=== PATIENT | male | born 1950 | race Caucasian/White ===

== ENCOUNTER 2017-03-15 13:20 | Inpatient (IN) | payer MEDICARE ==
[~2017-03-15] VITALS: Ht 177.8 cm; Wt 120.7 kg
[~2017-03-15 13:20] MED LIST: ACET500T33 PO; ACET500T68 PO; ALBU2.5V5 IH; ASPI-612 PO; CLOP75TA57 PO; DOCU100C28 PO; ENOX60DI SQ; EZET10TA18 PO; FENO160T PO; FLUT16SP2 NS; Fentanyl TD; GABA-586 PO; HYDR-2762 PO; INSU100C4 SQ; ISOS120T PO; LACT10SO26 PO; LIPITOR80 MG PO; LISI-338 PO; METO25TA9 PO; METO5TAB PO; NITR4.1S TL; OXYM40TA PO; OXYM5TAB3 PO; PANT40TA3 PO; PRAV20TA2 PO; SUCR1TAB35 PO; TAMS0.4C97 PO; TIOT18CA IH; WARF4TAB7 PO; WARF5TAB7 PO; ZOLP10TA PO
--- NOTE | 2017-03-15 14:31 | RAD ---
Chest, 2 views, 03/15/2017: History: Shortness of breath Comparison is made to a study from 02/24/2016. The heart size and pulmonary vascularity are normal. No pulmonary infiltrates are seen. There is no evidence of pleural fluid. Moderate hypertrophic spurring is present in the spine. IMPRESSION: No acute cardiopulmonary abnormality is detected.
--- NOTE | 2017-03-15 14:44 | RAD ---
CT of the head without contrast, 03/15/2017: History: Dizziness Comparison is made to a study from 10/29/2013. The ventricles are within normal limits in size. There is no shift of the midline structures. There is no evidence of acute intracranial hemorrhage or mass effect. IMPRESSION: No acute intracranial abnormality is detected. PQRS Compliance Statement: One or more of the following individualized dose reduction techniques were utilized for this examination: 1. Automated exposure control 2. Adjustment of the mA and/or kV according to patient size 3. Use of iterative reconstruction technique
[2017-03-15] MEDS ORDERED: ALPR0.5T6 PO (14:50)
[2017-03-15] MEDS ORDERED: CRESTOR40 MG PO (14:53)
[2017-03-15 15:13] LABS: BASO % 0 % (0-3); EOS # 0.1 x10^3/uL (0.0-0.7); EOS % 1 % (0-3); HEMATOCRIT 40.5 % (39.0-53.0); HEMOGLOBIN 13.8 g/dL (13.0-17.5); LYMPH # 3.7 x10^3/uL (1.0-4.8); LYMPH % 32 % (24-48); MEAN CORPUSCULAR HEMOGLOBIN 32 pg (25-35); MEAN CORPUSCULAR HGB CONC 34 g/dL (31-37); MEAN CORPUSCULAR VOLUME 95 fL (79-100); MONO % 9 % (0-9); NEUT # 6.9 x10^3uL (1.8-7.7); NEUT % 59 % (31-73); PLATELET COUNT 170 x10^3/uL (140-400); RED BLOOD COUNT 4.27 x10^6/uL (4.30-5.70); RED CELL DISTRIBUTION WIDTH 13.9 % (11.5-14.5); WHITE BLOOD COUNT 11.7 x10^3/uL (4.0-11.0)
[2017-03-15 15:17] VITALS: BP 105/55
[2017-03-15 15:25] LABS: ALBUMIN 3.5 g/dL (3.4-5.0); ALBUMIN/GLOBULIN RATIO 0.9 (1.0-1.7); CALCIUM 8.5 mg/dL (8.5-10.1); CREATININE 5.2 mg/dL (0.7-1.3); GFR 11.2; POTASSIUM 4.6 mmol/L (3.5-5.1); TOTAL BILIRUBIN 0.5 mg/dL (0.2-1.0); TOTAL PROTEIN 7.4 g/dL (6.4-8.2)
[2017-03-15] MEDS ORDERED: DEXTROSE 50% 25 GM / 50ML DISP.SYRIN. IV PRN (15:45)
[2017-03-15] MEDS ORDERED: ALPRAZolam 0.5 MG TABLET PO PRN (16:30)
[2017-03-15] MEDS: INSULIN ASPART 300 UNITS/3 ML INSULN.PEN SQ SCH ×2 (16:30→20:57)
[2017-03-15] MEDS: IV NORMAL SALINE 1,000ML 1,000 ML IV SCH ×2 (17:57→22:36)
[2017-03-15] MEDS: GABAPENTIN 300 MG CAPSULE. PO SCH ×2 (17:57→20:53)
[2017-03-15] MEDS: SUCRALFATE 1 GM TABLET. PO SCH ×2 (17:57→20:53)
[2017-03-15] MEDS: WARFARIN 5 MG TABLET. PO SCH (18:05)
--- NOTE | 2017-03-15 18:17 | NUR ---
The patient, SIOBHAN OLIVEIRA, 66 y/o, M admitted by RUBY BROWN MD, was given written information regarding hospital policies, unit procedures and contact persons. Valuables were checked and left with pt. Pt's present on admission.
[2017-03-15 19:51] VITALS: BP 95/46
[2017-03-15] MEDS: ZOLPIDEM 10 MG TABLET. PO SCH (20:53)
[2017-03-15] MEDS: TAMSULOSIN 0.4 MG CAP.ER.24H. PO SCH (20:53)
[2017-03-15] MEDS: MORPHINE SULFATE 2 MG/ML DISP.SYRIN. IV PRN (22:55)
[2017-03-15 23:17] LABS: BACTERIA,URINE MOD /HPF (0-FEW); BILIRUBIN,URINE NEG (NEG); CLARITY,URINE HAZY; COLOR,URINE YELLOW; GLUCOSE,URINE 500 mg/dL (NEG); NITRITE,URINE NEG (NEG); RBC,URINE RARE /HPF (0-2); UROBILINOGEN,URINE 0.2 mg/dL (0.2 mg/dL)
[2017-03-15 23:18] LABS: HYALINE CASTS, URINE OCC /HPF; SQUAMOUS EPITHELIAL CELL,UR FEW /LPF
[2017-03-15 23:23] VITALS: BP 111/55
[2017-03-16] VITALS (8 sets, daily range): BP systolic 92–159; BP diastolic 42–70
[2017-03-16] MEDS: IV NORMAL SALINE 1,000ML 1,000 ML IV SCH ×3 (04:56→18:39)
[2017-03-16 06:43] LABS: CALCIUM 7.7 mg/dL (8.5-10.1); CREATININE 3.8 mg/dL (0.7-1.3); POTASSIUM 4.9 mmol/L (3.5-5.1)
[2017-03-16 06:48] LABS: BASO % 0 % (0-3); EOS # 0.1 x10^3/uL (0.0-0.7); EOS % 1 % (0-3); HEMATOCRIT 37.7 % (39.0-53.0); HEMOGLOBIN 12.5 g/dL (13.0-17.5); LYMPH # 3.3 x10^3/uL (1.0-4.8); LYMPH % 43 % (24-48); MEAN CORPUSCULAR HEMOGLOBIN 32 pg (25-35); MEAN CORPUSCULAR HGB CONC 33 g/dL (31-37); MEAN CORPUSCULAR VOLUME 97 fL (79-100); MONO # 0.6 x10^3/uL (0.0-1.1); MONO % 8 % (0-9); NEUT # 3.7 x10^3uL (1.8-7.7); NEUT % 48 % (31-73); PLATELET COUNT 131 x10^3/uL (140-400); RED BLOOD COUNT 3.88 x10^6/uL (4.30-5.70); RED CELL DISTRIBUTION WIDTH 14.1 % (11.5-14.5); WHITE BLOOD COUNT 7.7 x10^3/uL (4.0-11.0)
[2017-03-16] MEDS: INSULIN ASPART 300 UNITS/3 ML INSULN.PEN SQ SCH ×4 (08:10→21:26)
[2017-03-16] MEDS ORDERED: METOPROLOL SUCC 24HR ER 100 MG TAB.ER.24H. PO SCH (09:00)
[2017-03-16] MEDS: SUCRALFATE 1 GM TABLET. PO SCH ×4 (09:04→21:25)
[2017-03-16] MEDS: TAMSULOSIN 0.4 MG CAP.ER.24H. PO SCH ×2 (09:04→21:24)
[2017-03-16] MEDS: GABAPENTIN 300 MG CAPSULE. PO SCH ×4 (09:05→21:24)
[2017-03-16] MEDS: INSULIN DETEMIR 300 UNITS/3 ML INSULN.PEN. SQ SCH ×2 (09:15→21:26)
[2017-03-16] MEDS ORDERED: ZOLPIDEM 5 MG TABLET. PO PRN (10:45)
[2017-03-16] MEDS ORDERED: fentaNYL 25MCG/HR 1 PATCH PATCH TD SCH (11:00)
[2017-03-16 11:01] LABS: PHOSPHORUS 4.3 mg/dL (2.6-4.7)
--- NOTE | 2017-03-16 11:02 | PDOC ---
SUBJECTIVE: Feels better overall not as weak as he was still little bit slow but not anywhere near as he was when he came in through the office in the emergency room OBJECTIVE: Problems: Weakness acute renal failure Vital Signs: Vital signs stable Vital Signs Date Time Temp Pulse Resp B/P (MAP) Pulse Ox O2 Delivery O2 Flow Rate FiO2 03/16/17 09:09 98 16 116/64 (81) 03/16/17 04:57 97.5 03/15/17 23:41 96 03/15/17 23:23 Nasal Cannula 2.0 I & O Intake and Output 03/16/17 07:00 Intake Total 2460 ml Output Total 450 ml Balance 2010 ml Intake Oral 600 ml IV Total 1860 ml Output Urine Total 450 ml Labs: Lab tests show a decrease in his platelet counts 230,000 creatinine went from 5.2 down into the 3 range Laboratory Tests Test 03/15/17 14:55 03/15/17 16:57 03/15/17 19:48 03/15/17 21:00 White Blood Count 11.7 x10^3/uL (4.0-11.0) Red Blood Count 4.27 x10^6/uL (4.30-5.70) Hemoglobin 13.8 g/dL (13.0-17.5) Hematocrit 40.5 % (39.0-53.0) Mean Corpuscular Volume 95 fL (79-100) Mean Corpuscular Hemoglobin 32 pg (25-35) Mean Corpuscular Hemoglobin Concent 34 g/dL (31-37) Red Cell Distribution Width 13.9 % (11.5-14.5) Platelet Count 170 x10^3/uL (140-400) Neutrophils (%) (Auto) 59 % (31-73) Lymphocytes (%) (Auto) 32 % (24-48) Monocytes (%) (Auto) 9 % (0-9) Eosinophils (%) (Auto) 1 % (0-3) Basophils (%) (Auto) 0 % (0-3) Neutrophils # (Auto) 6.9 x10^3uL (1.8-7.7) Lymphocytes # (Auto) 3.7 x10^3/uL (1.0-4.8) Monocytes # (Auto) 1.0 x10^3/uL (0.0-1.1) Eosinophils # (Auto) 0.1 x10^3/uL (0.0-0.7) Basophils # (Auto) 0.0 x10^3/uL (0.0-0.2) Prothrombin Time 23.8 SEC (9.4-11.4) Prothromb Time International Ratio 2.3 (0.9-1.1) D-Dimer (Fidelina) 0.19 mg/L (0.00-0.50) Sodium Level 136 mmol/L (136-145) Potassium Level 4.6 mmol/L (3.5-5.1) Chloride Level 101 mmol/L (98-107) Carbon Dioxide Level 26 mmol/L (21-32) Anion Gap 9 (6-14) Blood Urea Nitrogen 64 mg/dL (8-26) Creatinine 5.2 mg/dL (0.7-1.3) Estimated GFR (Cockcroft-Gault) 11.2 BUN/Creatinine Ratio 12 (6-20) Glucose Level 217 mg/dL (70-99) Calcium Level 8.5 mg/dL (8.5-10.1) Total Bilirubin 0.5 mg/dL (0.2-1.0) Aspartate Amino Transf (AST/SGOT) 24 U/L (15-37) Alanine Aminotransferase (ALT/SGPT) 28 U/L (16-63) Alkaline Phosphatase 91 U/L (46-116) Creatine Kinase 442 U/L (39-308) Troponin I Quantitative < 0.017 ng/mL (0-0.055) < 0.017 ng/mL (0-0.055) TV-Fyf-S-Type Natriuretic Peptide 33 pg/mL (0-124) Total Protein 7.4 g/dL (6.4-8.2) Albumin 3.5 g/dL (3.4-5.0) Albumin/Globulin Ratio 0.9 (1.0-1.7) Glucose (Fingerstick) 241 mg/dL (70-99) 362 mg/dL (70-99) Test 03/15/17 22:45 03/16/17 01:30 03/16/17 05:45 03/16/17 07:39 Urine Collection Type Unknown Urine Color Yellow Urine Clarity Hazy Urine pH 5.0 Urine Specific [place] 1.025 Urine Protein Trace (NEG-TRACE) Urine Glucose (UA) 500 mg/dL (NEG) Urine Ketones (Stick) Neg mg/dL (NEG) Urine Blood Neg (NEG) Urine Nitrite Neg (NEG) Urine Bilirubin Neg (NEG) Urine Urobilinogen Dipstick 0.2 mg/dL (0.2 mg/dL) Urine Leukocyte Esterase Neg (NEG) Urine RBC Rare /HPF (0-2) Urine WBC 11-20 /HPF (0-4) Urine Squamous Epithelial Cells Few /LPF Urine Bacteria Mod /HPF (0-FEW) Urine Hyaline Casts Occ /HPF Urine Mucus Slight /LPF Troponin I Quantitative < 0.017 ng/mL (0-0.055) White Blood Count 7.7 x10^3/uL (4.0-11.0) Red Blood Count 3.88 x10^6/uL (4.30-5.70) Hemoglobin 12.5 g/dL (13.0-17.5) Hematocrit 37.7 % (39.0-53.0) Mean Corpuscular Volume 97 fL (79-100) Mean Corpuscular Hemoglobin 32 pg (25-35) Mean Corpuscular Hemoglobin Concent 33 g/dL (31-37) Red Cell Distribution Width 14.1 % (11.5-14.5) Platelet Count 131 x10^3/uL (140-400) Neutrophils (%) (Auto) 48 % (31-73) Lymphocytes (%) (Auto) 43 % (24-48) Monocytes (%) (Auto) 8 % (0-9) Eosinophils (%) (Auto) 1 % (0-3) Basophils (%) (Auto) 0 % (0-3) Neutrophils # (Auto) 3.7 x10^3uL (1.8-7.7) Lymphocytes # (Auto) 3.3 x10^3/uL (1.0-4.8) Monocytes # (Auto) 0.6 x10^3/uL (0.0-1.1) Eosinophils # (Auto) 0.1 x10^3/uL (0.0-0.7) Basophils # (Auto) 0.0 x10^3/uL (0.0-0.2) Sodium Level 134 mmol/L (136-145) Potassium Level 4.9 mmol/L (3.5-5.1) Chloride Level 102 mmol/L (98-107) Carbon Dioxide Level 25 mmol/L (21-32) Anion Gap 7 (6-14) Blood Urea Nitrogen 65 mg/dL (8-26) Creatinine 3.8 mg/dL (0.7-1.3) Estimated GFR (Cockcroft-Gault) 16.0 Glucose Level 299 mg/dL (70-99) Calcium Level 7.7 mg/dL (8.5-10.1) Glucose (Fingerstick) 304 mg/dL (70-99) Physical Exam: White male morbidly obese alert and oriented 3 since feeling better otherwise This Alert and oriented Lungs diminished but clear is CV exam regular sinus rhythm Abdomen protuberant soft nontender [place] a clubbing cyanosis trace edema Neurologically alert and oriented speech fluent spontaneous appropriate cranial nerves II-12 grossly intact ASSESSMENT: Acute renal failure Dehydration morbid obesity Type 2 diabetes poorly controlled PLAN: Continue with IV fluids gentle hydration continue monitor him on his blood sugars and RUBY Jacobson MD Mar 16, 2017 11:02
--- NOTE | 2017-03-16 11:30 | NUR ---
Sliding scale insulin held, blood sugar 406, called Dr. Parsons and received order for 30 units insulin.
[2017-03-16] MEDS ORDERED: INSULIN ASPART 300 UNITS/3 ML INSULN.PEN SQ ONE ×2 (12:30→18:00)
[2017-03-16] MEDS: ISOSORBIDE MONONITRATE ER 60 MG TAB.ER.24H PO SCH (15:06)
[2017-03-16] MEDS: WARFARIN 5 MG TABLET. PO SCH (16:13)
[2017-03-16] MEDS: METOPROLOL SUCC 24HR ER 100 MG TAB.ER.24H. PO SCH ×2 (21:25→21:50)
[2017-03-16] MEDS: ZOLPIDEM 10 MG TABLET. PO SCH (21:25)
[2017-03-17] MEDS: IV NORMAL SALINE 1,000ML 1,000 ML IV SCH ×4 (01:50→20:42)
[2017-03-17] MEDS: BACLOFEN 10 MG TABLET PO PRN ×3 (05:35→20:43)
[2017-03-17 05:51] VITALS: BP 124/52
[2017-03-17 06:42] LABS: BASO % 0 % (0-3); EOS # 0.1 x10^3/uL (0.0-0.7); EOS % 2 % (0-3); HEMATOCRIT 35.4 % (39.0-53.0); HEMOGLOBIN 11.9 g/dL (13.0-17.5); LYMPH # 3.1 x10^3/uL (1.0-4.8); LYMPH % 41 % (24-48); MEAN CORPUSCULAR HEMOGLOBIN 33 pg (25-35); MEAN CORPUSCULAR HGB CONC 34 g/dL (31-37); MEAN CORPUSCULAR VOLUME 97 fL (79-100); MONO # 0.6 x10^3/uL (0.0-1.1); MONO % 8 % (0-9); NEUT # 3.7 x10^3uL (1.8-7.7); NEUT % 49 % (31-73); PLATELET COUNT 126 x10^3/uL (140-400); RED BLOOD COUNT 3.65 x10^6/uL (4.30-5.70); RED CELL DISTRIBUTION WIDTH 14.2 % (11.5-14.5); WHITE BLOOD COUNT 7.6 x10^3/uL (4.0-11.0)
[2017-03-17 06:58] LABS: ALBUMIN 2.7 g/dL (3.4-5.0); ALBUMIN/GLOBULIN RATIO 0.8 (1.0-1.7); CALCIUM 7.2 mg/dL (8.5-10.1); CREATININE 2.8 mg/dL (0.7-1.3); GFR 22.8; POTASSIUM 4.9 mmol/L (3.5-5.1); TOTAL PROTEIN 6.2 g/dL (6.4-8.2)
[2017-03-17 07:11] LABS: TOTAL BILIRUBIN 0.4 mg/dL (0.2-1.0)
[2017-03-17] MEDS: INSULIN ASPART 300 UNITS/3 ML INSULN.PEN SQ SCH ×6 (08:34→20:45)
[2017-03-17] MEDS: TAMSULOSIN 0.4 MG CAP.ER.24H. PO SCH ×2 (08:39→20:42)
[2017-03-17] MEDS: SUCRALFATE 1 GM TABLET. PO SCH ×4 (08:39→20:43)
[2017-03-17] MEDS: GABAPENTIN 300 MG CAPSULE. PO SCH ×4 (08:39→20:42)
[2017-03-17] MEDS: INSULIN DETEMIR 300 UNITS/3 ML INSULN.PEN. SQ SCH ×2 (08:45→20:45)
[2017-03-17] MEDS: ISOSORBIDE MONONITRATE ER 60 MG TAB.ER.24H PO SCH (11:13)
--- NOTE | 2017-03-17 11:40 | PDOC ---
SUBJECTIVE: Patient feels some better but still weak OBJECTIVE: Problems: Acute on top of chronic renal failure Type 2 diabetes poorly controlled Morbid obesity Alert and oriented white male in no apparent distress still feeling some weakness lungs are clear CVR exam regular sinus rhythm Abdomen soft nontender. [place] and extremities slight edema noted neurologically alert and oriented 3 Vital Signs: Noted Vital Signs Date Time Temp Pulse Resp B/P (MAP) Pulse Ox O2 Delivery O2 Flow Rate FiO2 03/17/17 11:13 98.2 03/17/17 11:13 73 130/52 03/17/17 05:51 17 96 Nasal Cannula 2.0 I & O Intake and Output 03/17/17 07:00 Intake Total 5024 ml Output Total 1600 ml Balance 3424 ml Intake Oral 1560 ml IV Total 3464 ml Output Urine Total 1600 ml # Voids 1 # Bowel Movements 1 Labs: Creatinine down to 2.8 so marked improvement there blood sugars are coming down gradually with the increase in his long-acting Levemir Laboratory Tests Test 03/15/17 14:35 03/15/17 14:55 03/15/17 16:57 03/15/17 19:48 Nasal Screen MRSA (PCR) Negative (Negative) White Blood Count 11.7 x10^3/uL (4.0-11.0) Red Blood Count 4.27 x10^6/uL (4.30-5.70) Hemoglobin 13.8 g/dL (13.0-17.5) Hematocrit 40.5 % (39.0-53.0) Mean Corpuscular Volume 95 fL (79-100) Mean Corpuscular Hemoglobin 32 pg (25-35) Mean Corpuscular Hemoglobin Concent 34 g/dL (31-37) Red Cell Distribution Width 13.9 % (11.5-14.5) Platelet Count 170 x10^3/uL (140-400) Neutrophils (%) (Auto) 59 % (31-73) Lymphocytes (%) (Auto) 32 % (24-48) Monocytes (%) (Auto) 9 % (0-9) Eosinophils (%) (Auto) 1 % (0-3) Basophils (%) (Auto) 0 % (0-3) Neutrophils # (Auto) 6.9 x10^3uL (1.8-7.7) Lymphocytes # (Auto) 3.7 x10^3/uL (1.0-4.8) Monocytes # (Auto) 1.0 x10^3/uL (0.0-1.1) Eosinophils # (Auto) 0.1 x10^3/uL (0.0-0.7) Basophils # (Auto) 0.0 x10^3/uL (0.0-0.2) Prothrombin Time 23.8 SEC (9.4-11.4) Prothromb Time International Ratio 2.3 (0.9-1.1) D-Dimer (Fidelina) 0.19 mg/L (0.00-0.50) Sodium Level 136 mmol/L (136-145) Potassium Level 4.6 mmol/L (3.5-5.1) Chloride Level 101 mmol/L (98-107) Carbon Dioxide Level 26 mmol/L (21-32) Anion Gap 9 (6-14) Blood Urea Nitrogen 64 mg/dL (8-26) Creatinine 5.2 mg/dL (0.7-1.3) Estimated GFR (Cockcroft-Gault) 11.2 BUN/Creatinine Ratio 12 (6-20) Glucose Level 217 mg/dL (70-99) Hemoglobin A1c 8.0 % (4.8-5.6) Calcium Level 8.5 mg/dL (8.5-10.1) Total Bilirubin 0.5 mg/dL (0.2-1.0) Aspartate Amino Transf (AST/SGOT) 24 U/L (15-37) Alanine Aminotransferase (ALT/SGPT) 28 U/L (16-63) Alkaline Phosphatase 91 U/L (46-116) Creatine Kinase 442 U/L (39-308) Troponin I Quantitative < 0.017 ng/mL (0-0.055) WD-Asg-H-Type Natriuretic Peptide 33 pg/mL (0-124) Total Protein 7.4 g/dL (6.4-8.2) Albumin 3.5 g/dL (3.4-5.0) Albumin/Globulin Ratio 0.9 (1.0-1.7) Glucose (Fingerstick) 241 mg/dL (70-99) 362 mg/dL (70-99) Test 03/15/17 21:00 03/15/17 22:45 03/16/17 01:30 03/16/17 05:45 Troponin I Quantitative < 0.017 ng/mL (0-0.055) < 0.017 ng/mL (0-0.055) Urine Collection Type Unknown Urine Color Yellow Urine Clarity Hazy Urine pH 5.0 Urine Specific [place] 1.025 Urine Protein Trace (NEG-TRACE) Urine Glucose (UA) 500 mg/dL (NEG) Urine Ketones (Stick) Neg mg/dL (NEG) Urine Blood Neg (NEG) Urine Nitrite Neg (NEG) Urine Bilirubin Neg (NEG) Urine Urobilinogen Dipstick 0.2 mg/dL (0.2 mg/dL) Urine Leukocyte Esterase Neg (NEG) Urine RBC Rare /HPF (0-2) Urine WBC 11-20 /HPF (0-4) Urine Squamous Epithelial Cells Few /LPF Urine Bacteria Mod /HPF (0-FEW) Urine Hyaline Casts Occ /HPF Urine Mucus Slight /LPF White Blood Count 7.7 x10^3/uL (4.0-11.0) Red Blood Count 3.88 x10^6/uL (4.30-5.70) Hemoglobin 12.5 g/dL (13.0-17.5) Hematocrit 37.7 % (39.0-53.0) Mean Corpuscular Volume 97 fL (79-100) Mean Corpuscular Hemoglobin 32 pg (25-35) Mean Corpuscular Hemoglobin Concent 33 g/dL (31-37) Red Cell Distribution Width 14.1 % (11.5-14.5) Platelet Count 131 x10^3/uL (140-400) Neutrophils (%) (Auto) 48 % (31-73) Lymphocytes (%) (Auto) 43 % (24-48) Monocytes (%) (Auto) 8 % (0-9) Eosinophils (%) (Auto) 1 % (0-3) Basophils (%) (Auto) 0 % (0-3) Neutrophils # (Auto) 3.7 x10^3uL (1.8-7.7) Lymphocytes # (Auto) 3.3 x10^3/uL (1.0-4.8) Monocytes # (Auto) 0.6 x10^3/uL (0.0-1.1) Eosinophils # (Auto) 0.1 x10^3/uL (0.0-0.7) Basophils # (Auto) 0.0 x10^3/uL (0.0-0.2) Sodium Level 134 mmol/L (136-145) Potassium Level 4.9 mmol/L (3.5-5.1) Chloride Level 102 mmol/L (98-107) Carbon Dioxide Level 25 mmol/L (21-32) Anion Gap 7 (6-14) Blood Urea Nitrogen 65 mg/dL (8-26) Creatinine 3.8 mg/dL (0.7-1.3) Estimated GFR (Cockcroft-Gault) 16.0 Glucose Level 299 mg/dL (70-99) Calcium Level 7.7 mg/dL (8.5-10.1) Phosphorus Level 4.3 mg/dL (2.6-4.7) Albumin 3.0 g/dL (3.4-5.0) Test 03/16/17 07:39 03/16/17 10:40 03/16/17 11:22 03/16/17 16:38 Glucose (Fingerstick) 304 mg/dL (70-99) 406 mg/dL (70-99) 313 mg/dL (70-99) Prothrombin Time 28.2 SEC (9.4-11.4) Prothromb Time International Ratio 2.7 (0.9-1.1) Test 03/16/17 20:48 03/17/17 06:10 03/17/17 07:26 03/17/17 11:30 Glucose (Fingerstick) 267 mg/dL (70-99) 219 mg/dL (70-99) 309 mg/dL (70-99) White Blood Count 7.6 x10^3/uL (4.0-11.0) Red Blood Count 3.65 x10^6/uL (4.30-5.70) Hemoglobin 11.9 g/dL (13.0-17.5) Hematocrit 35.4 % (39.0-53.0) Mean Corpuscular Volume 97 fL (79-100) Mean Corpuscular Hemoglobin 33 pg (25-35) Mean Corpuscular Hemoglobin Concent 34 g/dL (31-37) Red Cell Distribution Width 14.2 % (11.5-14.5) Platelet Count 126 x10^3/uL (140-400) Neutrophils (%) (Auto) 49 % (31-73) Lymphocytes (%) (Auto) 41 % (24-48) Monocytes (%) (Auto) 8 % (0-9) Eosinophils (%) (Auto) 2 % (0-3) Basophils (%) (Auto) 0 % (0-3) Neutrophils # (Auto) 3.7 x10^3uL (1.8-7.7) Lymphocytes # (Auto) 3.1 x10^3/uL (1.0-4.8) Monocytes # (Auto) 0.6 x10^3/uL (0.0-1.1) Eosinophils # (Auto) 0.1 x10^3/uL (0.0-0.7) Basophils # (Auto) 0.0 x10^3/uL (0.0-0.2) Prothrombin Time 30.3 SEC (9.4-11.4) Prothromb Time International Ratio 2.9 (0.9-1.1) Sodium Level 136 mmol/L (136-145) Potassium Level 4.9 mmol/L (3.5-5.1) Chloride Level 106 mmol/L (98-107) Carbon Dioxide Level 26 mmol/L (21-32) Anion Gap 4 (6-14) Blood Urea Nitrogen 62 mg/dL (8-26) Creatinine 2.8 mg/dL (0.7-1.3) Estimated GFR (Cockcroft-Gault) 22.8 BUN/Creatinine Ratio 22 (6-20) Glucose Level 226 mg/dL (70-99) Calcium Level 7.2 mg/dL (8.5-10.1) Total Bilirubin 0.4 mg/dL (0.2-1.0) Aspartate Amino Transf (AST/SGOT) 17 U/L (15-37) Alanine Aminotransferase (ALT/SGPT) 21 U/L (16-63) Alkaline Phosphatase 67 U/L (46-116) Total Protein 6.2 g/dL (6.4-8.2) Albumin 2.7 g/dL (3.4-5.0) Albumin/Globulin Ratio 0.8 (1.0-1.7) ASSESSMENT: As noted above acute on top of chronic renal failure Type 2 diabetes poorly controlled Dehydration Morbid obesity RUBY BROWN MD Mar 17, 2017 11:40
[2017-03-17] MEDS: WARFARIN 5 MG TABLET. PO SCH (15:56)
[2017-03-17 20:28] VITALS: BP 170/85
--- NOTE | 2017-03-17 20:31 | NUR ---
Patient assessed, care plan reviewed, continue to monitor.
[2017-03-17] MEDS: ZOLPIDEM 10 MG TABLET. PO SCH (20:42)
[2017-03-17] MEDS: METOPROLOL SUCC 24HR ER 100 MG TAB.ER.24H. PO SCH (20:43)
[2017-03-17 23:55] VITALS: BP 236/117
[2017-03-17 23:58] VITALS: BP 220/103
[2017-03-18] VITALS (10 sets, daily range): BP systolic 110–221; BP diastolic 57–106
--- NOTE | 2017-03-18 00:06 | NUR ---
Called Dr. Parsons to make him aware that the patient woke up very confused and stumbling around his room. The patient was assessed, neuro checks were completed, blood sugar and vitals were taken. The patient had taken Ambien earlier to help him sleep, which I made the doctor aware of. I also made the doctor aware that the patient's blood pressures were very high at this time (see vs documentation). I was given additional medication orders to treat this hypertension (see mar).
[2017-03-18] MEDS: NITROGLYCERIN SUBLINGUAL 0.4 MG BOTTLE OF 25. SL PRN ×2 (00:08→00:15)
[2017-03-18] MEDS ORDERED: hydrALAZINE 25 MG TABLET PO PRN (00:30)
[2017-03-18] MEDS: IV NORMAL SALINE 1,000ML 1,000 ML IV SCH ×2 (00:43→11:25)
--- NOTE | 2017-03-18 01:00 | NUR ---
0052 This nurse entered orders for EKG and cardiac enzymes per chest pain protocol. Will continue to monitor.
--- NOTE | 2017-03-18 01:00 | NUR ---
The patient became very anxious and complaining of of chest pain at 0005. At 0008 nitro was administered with minimal relief. Another nitro was given at 0015 relieving the chest pain.
--- NOTE | 2017-03-18 01:05 | NUR ---
The patient's cardiac enzymes are within normal limits. Patient is resting well with blood pressures improving.
[2017-03-18] MEDS: MORPHINE SULFATE 2 MG/ML DISP.SYRIN. IV PRN (01:09)
--- NOTE | 2017-03-18 01:14 | EKG ---
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
--- NOTE | 2017-03-18 01:20 | NUR ---
Patient is resting comfortably with family at the bedside. Blood pressures are improving. Will continue to monitor.
[2017-03-18 03:30] LABS: ALBUMIN/GLOBULIN RATIO 0.8 (1.0-1.7); CALCIUM 7.8 mg/dL (8.5-10.1); CREATININE 2.3 mg/dL (0.7-1.3); TOTAL PROTEIN 6.7 g/dL (6.4-8.2)
[2017-03-18 03:31] LABS: GFR 28.6; TOTAL BILIRUBIN 0.3 mg/dL (0.2-1.0)
[2017-03-18 03:54] LABS: PHOSPHORUS 3.3 mg/dL (2.6-4.7)
[2017-03-18] MEDS: GABAPENTIN 300 MG CAPSULE. PO SCH ×2 (08:29→12:13)
[2017-03-18] MEDS: TAMSULOSIN 0.4 MG CAP.ER.24H. PO SCH (08:29)
[2017-03-18] MEDS: ISOSORBIDE MONONITRATE ER 60 MG TAB.ER.24H PO SCH (08:29)
[2017-03-18] MEDS: SUCRALFATE 1 GM TABLET. PO SCH ×2 (08:29→12:13)
[2017-03-18] MEDS: INSULIN ASPART 300 UNITS/3 ML INSULN.PEN SQ SCH ×4 (08:30→12:14)
[2017-03-18] MEDS: INSULIN DETEMIR 300 UNITS/3 ML INSULN.PEN. SQ SCH (08:30)
[2017-03-18] MEDS ORDERED: ZOLP5TAB PO (11:56)
[2017-03-18] MEDS ORDERED: BACL10TA PO (11:56)
[2017-03-18] MEDS ORDERED: FENT1PAT15 TD (11:56)
[2017-03-18] MEDS ORDERED: INSU100I17 SQ (11:56)
[2017-03-18] MEDS ORDERED: HYDR-2868 PO (11:56)
[2017-03-18] MEDS ORDERED: INSU100I27 SQ (11:56)
== END 2017-03-18 14:51 | disposition swing bed (61) | DRG 683 ==
LOC: ICU 13:22
PROVIDERS: ADMIT Family Medicine; ATTEND Family Medicine
DX: N17.9 Acute kidney failure, unspecified (principal); D62 Acute posthemorrhagic anemia; E66.01 Morbid (severe) obesity due to excess calories; E11.22 Type 2 diabetes mellitus with diabetic chronic kidney disease; N18.9 Chronic kidney disease, unspecified; E86.0 Dehydration; Z68.38 Body mass index [BMI] 38.0-38.9, adult
CPT/HCPCS: 36415; 70450; 71020; 80048; 80053; 81001; 82040; 82550; 82553; 82947; 83036; 83880; 84100; 84484; 85027; 85379; 85610; 87086; 87641; 93005; 97163; J1815; J2270; 97110; 97116; J7030

== ENCOUNTER 2017-03-18 09:30 | Inpatient (IN) | payer MEDICARE ==
[~2017-03-18] VITALS: Ht 177.8 cm; Wt 123.6 kg
[~2017-03-18 09:30] MED LIST changes: +ALPR0.5T6 PO; +CRESTOR40 MG PO
[2017-03-18] MEDS ORDERED: ZOLP5TAB PO (11:56)
[2017-03-18] MEDS ORDERED: HYDR-2868 PO (11:56)
[2017-03-18] MEDS ORDERED: INSU100I27 SQ (11:56)
[2017-03-18] MEDS ORDERED: BACL10TA PO (11:56)
[2017-03-18] MEDS ORDERED: FENT1PAT15 TD (11:56)
[2017-03-18] MEDS ORDERED: INSU100I17 SQ (11:56)
[2017-03-18] MEDS ORDERED: ZOLPIDEM 5 MG TABLET. PO PRN (15:15)
[2017-03-18] MEDS ORDERED: BACLOFEN 10 MG TABLET PO PRN (15:15)
[2017-03-18] MEDS ORDERED: ALPRAZolam 0.5 MG TABLET PO PRN (15:15)
[2017-03-18] MEDS ORDERED: hydrALAZINE 25 MG TABLET PO PRN (15:15)
[2017-03-18] MEDS ORDERED: DEXTROSE 50% 25 GM / 50ML DISP.SYRIN. IV PRN (15:15)
[2017-03-18] MEDS ORDERED: NITROGLYCERIN SUBLINGUAL 0.4 MG BOTTLE OF 25. SL PRN (15:45)
[2017-03-18] MEDS: INSULIN ASPART 300 UNITS/3 ML INSULN.PEN SQ SCH ×3 (17:17→20:02)
[2017-03-18] MEDS: GABAPENTIN 300 MG CAPSULE. PO SCH ×2 (17:22→19:53)
[2017-03-18] MEDS: WARFARIN 5 MG TABLET. PO SCH (17:22)
[2017-03-18] MEDS: SUCRALFATE 1 GM TABLET. PO SCH ×2 (17:22→19:53)
[2017-03-18] MEDS: METOPROLOL SUCC 24HR ER 100 MG TAB.ER.24H. PO SCH (19:54)
[2017-03-18] MEDS: TAMSULOSIN 0.4 MG CAP.ER.24H. PO SCH (19:54)
[2017-03-18] MEDS: INSULIN DETEMIR 300 UNITS/3 ML INSULN.PEN. SQ SCH (20:03)
[2017-03-18 20:06] VITALS: BP 136/53
[2017-03-19 00:13] VITALS: BP 149/72
[2017-03-19 02:10] VITALS: BP 154/72
[2017-03-19 06:44] LABS: CALCIUM 8.3 mg/dL (8.5-10.1); CREATININE 1.8 mg/dL (0.7-1.3); GFR 37.9; POTASSIUM 5.2 mmol/L (3.5-5.1)
[2017-03-19 07:40] VITALS: BP 151/62
[2017-03-19] MEDS: SUCRALFATE 1 GM TABLET. PO SCH ×4 (08:05→21:22)
[2017-03-19] MEDS: GABAPENTIN 300 MG CAPSULE. PO SCH ×4 (08:05→21:23)
[2017-03-19] MEDS: TAMSULOSIN 0.4 MG CAP.ER.24H. PO SCH ×2 (08:06→21:23)
[2017-03-19] MEDS: ISOSORBIDE MONONITRATE ER 30 MG TAB.ER.24H PO SCH (08:06)
[2017-03-19] MEDS: INSULIN DETEMIR 300 UNITS/3 ML INSULN.PEN. SQ SCH ×2 (08:11→21:27)
[2017-03-19] MEDS: INSULIN ASPART 300 UNITS/3 ML INSULN.PEN SQ SCH ×7 (08:12→21:32)
[2017-03-19] MEDS ORDERED: fentaNYL 25MCG/HR 1 PATCH PATCH TD SCH (09:00)
--- NOTE | 2017-03-19 09:25 | PDOC2 ---
DAVE CEE TRANSPORTATION COORDINATOR 03/19/17 0925: CONSULT Date of Admission DATE: 03/19/17 TIME: 09:13 Reason for Consult: Chest pain Referring Physician: Dr Parsons History of Present Illness This is a 66 year old male who presented to his PCP office last Saturday with extreme weakness. He has a history of of coronary artery disease, NC, hypertension, hyperlipidemia, history of pulmonary embolism in 2010 on chronic anti-coagulation and chronic pain syndrome. Berto came in to [facility] with weakness and was found to have acute renal failure. His creatinine at baseline is usually about 1.5 and he follows with Dr. Moeller on admission to the hospital it was greater than 5. He was given IV fluids and his medications were adjusted and his creatinine improved. Today it is 1.8 and he is feeling much better. On Saturday night he awoke in the middle the night about 2 hours after he had fallen asleep with substernal chest pain and diaphoresis. The pain was radiating down into his left arm and was associated with some shortness of breath but not any nausea or vomiting. his blood pressure systolic was greater than 200 and he was given 2 sublingual nitroglycerin and anxiety medicine that finally had his pain under control. Last night he had a 2nd episode of chest discomfort that was similar to the 1st night but his blood pressure was not high and it did not extend down his arm. He woke about 2 hours after sleep had substernal chest discomfort and was given 1 nitroglycerin and had relief of the pain after 10-15 minutes. This morning he is up in the chair he has not had further episodes of chest discomfort and his breathing is stable. Allergies: NIACIN Medications ALPRAZolam 0.5 mg tabletas needed gabapentin 300 mg capsuleTake 1 capsule(s) 4 times a day by oral route for 90 days. HumaLOG 100 unit/mL subcutaneous solutionas directed isosorbide mononitrate ER 120 mg tablet,extended release 24 hr1 tablet daily, start 02/04/2017 lisinopril 20 mg tabletTake 1 tablet(s) every day by oral route.02/04/17 prescribed JUAN J Rodríguez metoprolol succinate ER 100 mg tablet,extended release 24 hrTake 1 tablet(s) every day by oral route. nitroglycerin 400 mcg/spray translingualSpray 1 spray(s) every day by transling. route as needed for 10 days. sucralfate 1 gram tabletTake 1 tablet(s) 4 times a day by oral route for 30 days. tamsulosin 0.4 mg capsuleTake 1 capsule(s) twice a day by oral route for 90 days. warfarin 5 mg tablet zolpidem 10 mg tabletTake 1 tablet(s) every day by oral route for 30 days. Family History Father - Diabetes mellitus - Hypertensive disorder - Heart disease Mother - Diabetes mellitus - Hypertensive disorder - Heart disease Sister - Diabetes mellitus Brother - Diabetes mellitus - Hypertensive disorder - Cardiac pacemaker in situ Social History Occupation: retired Marital status: Live alone or with others?: with others Diet: Regular Exercise level: None Smoking Status: Never smoker Alcohol intake: Occasional Caffeine intake: Occasional Past Medical/Surgical History Coronary Artery Disease s/p PCI/Stent, HTN, HLD, NC Acid Reflux (GERD): Y Chronic Kidney Disease: Y Diabetes: Y Sleep Apnea: Y Cholecystectomy Pulmonary emboism in 2010 on chronic anti - coagulation Chronic pain syndrome. ROS - 10 point review of systems is negative except as above. Physical Exam GENERAL: This is a well developed, well nourished male. No apparent distress. SKIN: Warm and dry with normal skin turgor. Negative for pallor. No lesions or rashes noted. EYES: Conjunctiva are clear. Extraocular movements are intact. No xanthelasma. HEAD AND NECK: Oral mucosa is moist. There is no cyanosis. Neck is supple. Jugular venous pressure is flat. Carotid pulses are 2/2 bilaterally. No carotid bruits. There is no obvious thyromegaly. HEART: Regular rate and rhythm. Normal S1 and S2. No S3. No S4. + systolic murmur LUNGS: Effort is good. There is symmetric expansion bilaterally. Clear to auscultation bilaterally. No wheezes. No crackles. No rhonchi. ABDOMEN: Normal active bowel sounds. Soft. Nontender. EXTREMITIES: No clubbing. No cyanosis. No edema of lower extremities. Palpable pedal pulses. MUSCULOSKELETAL: No kyphosis. No scoliosis. No localized tenderness or stiffness. Gait appears normal. NEUROLOGIC: Alert and oriented times three. Cranial nerves III-XII are grossly intact. Good motor tone and strength in the upper and lower extremities bilaterally. PSYCHOLOGIC: This is a pleasant patient with a normal affect. Procedure Documentation 6 MINUTE WALK TEST IMPRESSION (01/04/2017):. Six minute walk test did not reveal desaturation or chronotropic insufficiency. Functional Capacity was low. ECHOCARDIOGRAM IMPRESSION (12/18/2016): The left ventricle is normal in size. There is mild concentric left ventricular hypertrophy. No significant regional wall motion abnormalities are identified. The left ventricular systolic function is normal with a visually estimated ejection fraction of 55-60%. There is evidence of impaired left ventricular relaxation suggestive of stage I diastolic dysfunction. The proximal ascending aorta appears mildly dilated at 3.8 cm. There is mild aortic valve sclerosis. There is mild pulmonic regurgitation. The estimated pulmonary artery systolic pressure is normal at 32 mmHg. Compared to the report (images were not available for review) of the study dated 09/19/2015, the left ventricular hypertrophy is a new finding. LEXISCAN NUCLEAR STRESS TEST IMPRESSION (07/06/2016): Normal myocardial perfusion scan Normal left ventricular systolic function Ejection fraction: 68%. There is no stress induced left ventricular dilatation or increase in lung to heart ratio. There were no stress induced ECG changes. There were no arrythmias. There was no stress induced chest pain. Compared to the report (images were not available for review) from the previous study performed on 01/25/2015, there was no significant change. HOLTER MONITOR IMPRESSION (09/19/2015):. 1. Normal Holter recording with occasional premature atrial complexes (110) and 1 single premature ventricular complex. 2. Although the patient had bradycardia during 3 of his symptoms of fatigue and tired, he was able to adequately increase his heart rate on multiple occasions up to 123 beats per minute. This makes chronotropic incompetence unlikely unless it is iatrogenic. The patient did report shortness of breath at 4 a.m; however, it appears to have been during the time when he was in bed. The other episode of feeling very tired at 9 a.m. when his heart rate was 48 appears to correspond with the time when he had just woken up. This would point to be the bradycardia being secondary to his fatigue rather than the etiology. BILATERAL RENAL ULTRASOUND 05/04/15: 1. No renal abnormality is detected. 2. CT follow-up to include multiphase scanning is suggested for evaluation of the small cortical bulge seen on the recent CT scan. CT abdomen and pelvis with oral contrast only 05/02/15: 1. No acute process in the abdomen or pelvis. The appendix is negative. 2. Postoperative changes of the lumbar spine as described above. 3. 1 centimeter exophytic isodensity right renal midpole new from the prior study of uncertain significance, could represent a new hemorrhagic cyst or a solid mass. Right lower extremity venous ultrasound, 03/21/2015 : There is no sonographic evidence of deep vein thrombosis in the right lower extremity CT angiogram of the chest with intravenous contrast 03/21/15: - Limited examination. No proximal segmental or larger pulmonary embolism identified. - No acute abnormality identified in the chest. CAROTID DOPPLER IMPRESSION (10/30/2013): Duplex scans of the right carotid system revealed: 1. Mild disease in carotid bulb, ICA. 2. There were no significant flow limiting lesions in carotid bulb, ICA, ECA, CCA. 3. The right vertebral artery shows normal antegrade flow. Duplex scans of the left carotid system revealed: 1. Mild disease in carotid bulb, ICA. 2. There were no significant flow limiting lesions in carotid bulb, ICA, ECA, CCA. 3. The left vertebral artery shows normal antegrade flow. CARDIAC CATHETERIZATION CLINICAL IMPRESSION (05/16/11): 1. Mildly elevated left ventricular end-diastolic pressure. 2. Moderate two-vessel coronary artery disease involving the proximal segments of the left anterior descending and dominant left circumflex coronary arteries as outlined above. 3. The patient is known to have normal left ventricular systolic function by nuclear stress test wich was performed on 02/15/2011 at [facility]. Specifically, his ejection fraction was 62% on that test. Assessment / Plan Chest pain - Continue imdur and replace lisinopril with ccb to control blood pressure, check ekg and troponin Coronary artery disease s/p PTCA/Stent to LAD with 90% Diagonal small vessel disease. Troponin elevation 12/2013 from probable NSTEMI with no culprit lesion found. Essential Hypertension, borderline controlled. Adjust the patients anti- hypertensive medications. Hyperlipidemia. His goal LDL is < 70 mg/dL. Resume Crestor Acute on chronic renal failure - Improving. On admit Creatine was over 5.0. Given fluids, Lisinopril stopped and DM meds adjusted. Now back down to 1.8 with baseline about 1.4. Obesity, Morbid. Lifestyle modification with exercise, diet and weight loss recommended. Chronic chest pain/Fibromyalgia. Obstructive sleep apnea intolerant to Cpap - Wears O2 at bedtime. Considering going to [facility] and finding out more about new sleep apnea devices. Diabetes mellitus. Continue treatment per primary provider. S/p PE on Coumadin last three years GERD/Gastroparesis - Improving with Nortriptyline Current Medications Current Medications Insulin Aspart (NovoLOG) 0-9 UNITS QIDACHS SQ Last administered on 03/19/17 08 :12; Start 03/18/17 at 16:30 Dextrose 12.5 gm PRN Q15MIN PRN IV SEE COMMENTS; Start 03/18/17 at 15:15 Alprazolam (Xanax) 0.5 mg PRN DAILY PRN PO ANXIETY / AGITATION; Start 03/18/17 at 15:15 Baclofen (Lioresal) 10 mg PRN TID PRN PO spasms cramps; Start 03/18/17 at 15:15 Fentanyl (Duragesic 25mcg/ Hr) 1 patch Q3DAYS TD Last administered on 08:07; Start 03/19/17 at 09:00 Gabapentin (Neurontin) 300 mg QID PO Last administered on 03/19/17 08:05; Start 03/18/17 at 17:00 Hydralazine HCl (Apresoline) 25 mg PRN Q6HRS PRN PO HTN; Start 03/18/17 at 15: 15 Insulin Aspart (NovoLOG) 10 units TIDAC SQ Last administered on 03/19/17 08:12 ; Start 03/18/17 at 16:30 Insulin Detemir (Levemir) 25 units BID SQ Last administered on 03/19/17 08:11 ; Start 03/18/17 at 21:00 Metoprolol Succinate (Toprol Xl) 100 mg HS PO Last administered on 03/18/17 19 :54; Start 03/18/17 at 21:00 Sucralfate (Carafate) 1 gm QID PO Last administered on 03/19/17 08:05; Start 03/18/17 at 17:00 Tamsulosin HCl (Flomax) 0.4 mg BID PO Last administered on 03/19/17 08:06; Start 03/18/17 at 21:00 Warfarin Sodium (Coumadin) 5 mg DAILY16 PO Last administered on 03/18/17 17:22 ; Start 03/18/17 at 16:00 Zolpidem Tartrate (Ambien) 5 mg PRN QHS PRN PO INSOMNIA, MAY REPEAT IN 1HR; Start 03/18/17 at 15:15 Isosorbide Mononitrate (Imdur) 120 mg DAILY PO Last administered on 03/19/17 08:06; Start 03/19/17 at 09:00 Nitroglycerin (Nitrostat) 0.4 mg PRN Q5MIN PRN SL CHEST PAIN Last administered on 03/19/17t 02:14; Start 03/18/17 at 15:45 Warfarin Sodium (Coumadin Per Physician) 1 each PRN DAILY PRN MC SEE COMMENTS; Start 03/18/17 at 15:45 Active Scripts Active Ambien (Zolpidem Tartrate) 5 Mg Tablet 5 Mg PO PRN QHS PRN Levemir Flextouch (Insulin Detemir) 100 Unit/1 Ml Insuln.pen 25 Units SQ BID 30 Days Novolog Flexpen (Insulin Aspart) 100 Unit/1 Ml Insuln.pen 10 Units SQ TIDAC Hydralazine Hcl 25 Mg Tablet 25 Mg PO PRN Q6HRS PRN 30 Days FENTANYL 25mcg/hr (Fentanyl) 1 Each Patch.td72 1 Patch TD Q3DAYS Baclofen 10 Mg Tablet 10 Mg PO PRN TID PRN Reported Alprazolam 0.5 Mg Tablet 1 Tab PO PRN DAILY PRN Warfarin Sodium 5 Mg Tablet 5 Mg PO DAILY LAST DOSE GIVEN: DATE: TODAY TIME: 4 PM NEXT DOSE DUE: DATE: TOMORROW TIME: 4 PM Gabapentin 300 Mg Capsule 1 Cap PO QID for neuropathy LAST DOSE GIVEN: DATE: TODAY TIME: WITH DINNER NEXT DOSE DUE: DATE: TODAY TIME: AT BEDTIME Carafate (Sucralfate) 1 Gm Tablet 1 Tab PO QID LAST DOSE GIVEN: DATE: TODAY TIME: BEFORE DINNER NEXT DOSE DUE: DATE: TOMORROW TIME: BEFORE BREAKFAST Flomax (Tamsulosin Hcl) 0.4 Mg Cap.er.24h 0.4 Mg PO BID for urinary symptoms LAST DOSE GIVEN: DATE: TODAY TIME: AM NEXT DOSE DUE: DATE: TODAY TIME: PM Nitromist (Nitroglycerin) 4.1 Gm [place] 4.1 Gm TL PRN Q5MIN PRN LAST DOSE GIVEN: DATE: TIME: NEXT DOSE DUE: DATE: MAY TAKE TODAY TIME: IF AND WHEN NEEDED Imdur (Isosorbide Mononitrate) 120 Mg Tab.er.24h 120 Mg PO DAILY LAST DOSE GIVEN: DATE: TODAY TIME: AM NEXT DOSE DUE: DATE: TOMORROW TIME: AM Metoprolol Succinate ( Xl ) (Metoprolol Succinate) 25 Mg Tab.er.24h 100 Mg PO DAILY LAST DOSE GIVEN: DATE: TODAY TIME: AM NEXT DOSE DUE: DATE: TOMORROW TIME: AM Allergies: Coded Allergies: niacin (Verified Allergy, Intermediate, 02/24/16) VITALS Vital Signs Date Time Temp Pulse Resp B/P (MAP) Pulse Ox O2 Delivery O2 Flow Rate FiO2 03/19/17 08:06 69 151/62 03/19/17 08:00 Nasal Cannula 2.0 03/19/17 07:40 98.5 20 95 Labs Laboratory Tests Test 03/18/17 19:54 03/19/17 06:24 03/19/17 07:18 Glucose (Fingerstick) 248 mg/dL (70-99) 184 mg/dL (70-99) Sodium Level 142 mmol/L (136-145) Potassium Level 5.2 mmol/L (3.5-5.1) Chloride Level 109 mmol/L (98-107) Carbon Dioxide Level 25 mmol/L (21-32) Anion Gap 8 (6-14) Blood Urea Nitrogen 40 mg/dL (8-26) Creatinine 1.8 mg/dL (0.7-1.3) Estimated GFR (Cockcroft-Gault) 37.9 Glucose Level 206 mg/dL (70-99) Calcium Level 8.3 mg/dL (8.5-10.1) ELI TOLEDO Jr, MD 03/21/17 0638: CONSULT Allergies: Coded Allergies: niacin (Verified Allergy, Intermediate, 02/24/16) Assessment/Plan The patient was seen by Dave Cee APRN [place] I have reviewed her findings and plan and agree with above. Due to staffing constraints, we did not have an attending available on this day to see the patient. Problems: DAVE CEE APRN Mar 19, 2017 09:25 ELI TOLEDO Jr, MD Mar 21, 2017 06:38
[2017-03-19] MEDS: amLODIPine BESYLATE 5 MG TABLET PO SCH (09:45)
--- NOTE | 2017-03-19 11:13 | EKG ---
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
[2017-03-19] MEDS: WARFARIN 5 MG TABLET. PO SCH (16:28)
[2017-03-19 18:54] VITALS: BP 143/65
[2017-03-19 19:09] VITALS: BP 118/65
[2017-03-19] MEDS ORDERED: PANTOPRAZOLE 40 MG TABLET. PO SCH (21:00)
[2017-03-19] MEDS ORDERED: PRAVASTATIN 20 MG TABLET. PO SCH (21:00)
[2017-03-19] MEDS: METOPROLOL SUCC 24HR ER 100 MG TAB.ER.24H. PO SCH (21:23)
[2017-03-20 05:23] VITALS: BP 133/62
[2017-03-20] MEDS: INSULIN DETEMIR 300 UNITS/3 ML INSULN.PEN. SQ SCH (07:52)
[2017-03-20] MEDS: INSULIN ASPART 300 UNITS/3 ML INSULN.PEN SQ SCH ×2 (07:53→07:55)
[2017-03-20 08:43] LABS: BASO # 0.1 x10^3/uL (0.0-0.2); BASO % 1 % (0-3); EOS # 0.2 x10^3/uL (0.0-0.7); EOS % 3 % (0-3); HEMATOCRIT 37.3 % (39.0-53.0); HEMOGLOBIN 12.5 g/dL (13.0-17.5); LYMPH # 2.9 x10^3/uL (1.0-4.8); LYMPH % 42 % (24-48); MEAN CORPUSCULAR HEMOGLOBIN 33 pg (25-35); MEAN CORPUSCULAR HGB CONC 34 g/dL (31-37); MEAN CORPUSCULAR VOLUME 97 fL (79-100); MONO # 0.5 x10^3/uL (0.0-1.1); MONO % 7 % (0-9); NEUT # 3.2 x10^3uL (1.8-7.7); NEUT % 48 % (31-73); PLATELET COUNT 138 x10^3/uL (140-400); RED BLOOD COUNT 3.85 x10^6/uL (4.30-5.70); RED CELL DISTRIBUTION WIDTH 14.2 % (11.5-14.5); WHITE BLOOD COUNT 6.8 x10^3/uL (4.0-11.0)
[2017-03-20] MEDS: SUCRALFATE 1 GM TABLET. PO SCH (08:58)
[2017-03-20] MEDS: TAMSULOSIN 0.4 MG CAP.ER.24H. PO SCH (08:58)
[2017-03-20 08:59] VITALS: BP 133/62
[2017-03-20] MEDS: ISOSORBIDE MONONITRATE ER 30 MG TAB.ER.24H PO SCH (08:59)
[2017-03-20] MEDS: amLODIPine BESYLATE 5 MG TABLET PO SCH (08:59)
[2017-03-20] MEDS: GABAPENTIN 300 MG CAPSULE. PO SCH (08:59)
--- NOTE | 2017-03-20 09:05 | PDOC ---
PROGRESS NOTES Assessment Chest pain. Exact etiology unclear. He had 1 negative troponin level. No further chest pain. TARSHA was changed to Amlodipine. He had a normal stress test about 9 months ago. Will continue present medication. Okay for discharge from a cardiac standpoint. CAD. He does not seem to be having angina at this time. Continue beta jamel, Imdur, Crestor. No Aspirin because he is on Warfarin. Hypertension. Reasonably controlled with present medications. Note medication change as above. He should be discharged with the present combination of medications, NOT what he was taking at home. Hypercholesterolemia. Continue Crestor. Problems: Subjective We are seeing him for chest pain. S: He denies any further chest pain. Denies dyspnea, palpitations, syncope. He was dizzy prior to admission, but this has also resolved. Chronic mild ankle edema is at baseline. Objective Vital Signs Date Time Temp Pulse Resp B/P (MAP) Pulse Ox O2 Delivery O2 Flow Rate FiO2 03/20/17 07:58 Room Air 03/20/17 05:23 98.4 68 18 133/62 (85) 95 2.0 Intake and Output 03/20/17 07:00 Intake Total 2300 ml Output Total 1375 ml Balance 925 ml Intake Oral 2300 ml Output Urine Total 1375 ml # Voids 4 Abdomen: Normal bowel sounds, Soft, No tenderness Heart: Regular rate, Normal S1, Normal S2, No murmurs Extremities: No clubbing, Normal pulses, Other (1+ bilateral pretibial edema.) General: Alert, Oriented X3, Cooperative, No acute distress HEENT: Atraumatic, EOMI, Mucous membr. moist/pink Lungs: Clear to auscultation, Normal air movement Neck: No JVD, +2 carotid pulse wo bruit Neuro: Normal gait, Normal speech, Strength at 5/5 X4 ext, Normal tone, Cranial nerves 3-12 NL Psych/Mental Status: Mental status NL, Mood NL Skin: No rashes, No breakdown, No significant lesion Review of Relevant I have reviewed the following items ariana (where applicable) has been applied. Labs Laboratory Tests Test 03/18/17 19:54 03/19/17 06:24 03/19/17 07:18 03/19/17 11:30 Glucose (Fingerstick) 248 mg/dL (70-99) 184 mg/dL (70-99) 259 mg/dL (70-99) Sodium Level 142 mmol/L (136-145) Potassium Level 5.2 mmol/L (3.5-5.1) Chloride Level 109 mmol/L (98-107) Carbon Dioxide Level 25 mmol/L (21-32) Anion Gap 8 (6-14) Blood Urea Nitrogen 40 mg/dL (8-26) Creatinine 1.8 mg/dL (0.7-1.3) Estimated GFR (Cockcroft-Gault) 37.9 Glucose Level 206 mg/dL (70-99) Calcium Level 8.3 mg/dL (8.5-10.1) Troponin I Quantitative < 0.017 ng/mL (0-0.055) Test 03/19/17 16:27 03/19/17 21:02 03/20/17 08:34 Glucose (Fingerstick) 244 mg/dL (70-99) 284 mg/dL (70-99) White Blood Count 6.8 x10^3/uL (4.0-11.0) Red Blood Count 3.85 x10^6/uL (4.30-5.70) Hemoglobin 12.5 g/dL (13.0-17.5) Hematocrit 37.3 % (39.0-53.0) Mean Corpuscular Volume 97 fL (79-100) Mean Corpuscular Hemoglobin 33 pg (25-35) Mean Corpuscular Hemoglobin Concent 34 g/dL (31-37) Red Cell Distribution Width 14.2 % (11.5-14.5) Platelet Count 138 x10^3/uL (140-400) Neutrophils (%) (Auto) 48 % (31-73) Lymphocytes (%) (Auto) 42 % (24-48) Monocytes (%) (Auto) 7 % (0-9) Eosinophils (%) (Auto) 3 % (0-3) Basophils (%) (Auto) 1 % (0-3) Neutrophils # (Auto) 3.2 x10^3uL (1.8-7.7) Lymphocytes # (Auto) 2.9 x10^3/uL (1.0-4.8) Monocytes # (Auto) 0.5 x10^3/uL (0.0-1.1) Eosinophils # (Auto) 0.2 x10^3/uL (0.0-0.7) Basophils # (Auto) 0.1 x10^3/uL (0.0-0.2) Medications Current Medications Insulin Aspart (NovoLOG) 0-9 UNITS QIDACHS SQ Last administered on 03/20/17 07 :53; Start 03/18/17 at 16:30 Dextrose 12.5 gm PRN Q15MIN PRN IV SEE COMMENTS; Start 03/18/17 at 15:15 Alprazolam (Xanax) 0.5 mg PRN DAILY PRN PO ANXIETY / AGITATION Last administered on 03/19/17 21:22; Start 03/18/17 at 15:15 Baclofen (Lioresal) 10 mg PRN TID PRN PO spasms cramps; Start 03/18/17 at 15:15 Fentanyl (Duragesic 25mcg/ Hr) 1 patch Q3DAYS TD Last administered on 08:07; Start 03/19/17 at 09:00 Gabapentin (Neurontin) 300 mg QID PO Last administered on 03/19/17 21:23; Start 03/18/17 at 17:00 Hydralazine HCl (Apresoline) 25 mg PRN Q6HRS PRN PO HTN; Start 03/18/17 at 15: 15 Insulin Aspart (NovoLOG) 10 units TIDAC SQ Last administered on 03/20/17 07:55 ; Start 03/18/17 at 16:30 Insulin Detemir (Levemir) 25 units BID SQ Last administered on 03/20/17 07:52 ; Start 03/18/17 at 21:00 Metoprolol Succinate (Toprol Xl) 100 mg HS PO Last administered on 03/19/17 21 :23; Start 03/18/17 at 21:00 Sucralfate (Carafate) 1 gm QID PO Last administered on 03/19/17 21:22; Start 03/18/17 at 17:00 Tamsulosin HCl (Flomax) 0.4 mg BID PO Last administered on 03/19/17 21:23; Start 03/18/17 at 21:00 Warfarin Sodium (Coumadin) 5 mg DAILY16 PO Last administered on 03/19/17 16:28 ; Start 03/18/17 at 16:00 Zolpidem Tartrate (Ambien) 5 mg PRN QHS PRN PO INSOMNIA, MAY REPEAT IN 1HR; Start 03/18/17 at 15:15 Isosorbide Mononitrate (Imdur) 120 mg DAILY PO Last administered on 03/19/17 08:06; Start 03/19/17 at 09:00 Nitroglycerin (Nitrostat) 0.4 mg PRN Q5MIN PRN SL CHEST PAIN Last administered on 03/19/17 02:14; Start 03/18/17 at 15:45 Warfarin Sodium (Coumadin Per Physician) 1 each PRN DAILY PRN MC SEE COMMENTS; Start 03/18/17 at 15:45 Amlodipine Besylate (Norvasc) 5 mg DAILY PO Last administered on 03/19/17 09: 45; Start 03/19/17 at 09:45 Pravastatin Sodium (Pravachol) 20 mg QHS PO Last administered on 03/19/17 21: 35; Start 03/19/17 at 21:00 Pantoprazole Sodium (Protonix) 40 mg QHS PO Last administered on 03/19/17 21: 35; Start 03/19/17 at 21:00 Active Scripts Active Ambien (Zolpidem Tartrate) 5 Mg Tablet 5 Mg PO PRN QHS PRN Levemir Flextouch (Insulin Detemir) 100 Unit/1 Ml Insuln.pen 25 Units SQ BID 30 Days Novolog Flexpen (Insulin Aspart) 100 Unit/1 Ml Insuln.pen 10 Units SQ TIDAC Hydralazine Hcl 25 Mg Tablet 25 Mg PO PRN Q6HRS PRN 30 Days FENTANYL 25mcg/hr (Fentanyl) 1 Each Patch.td72 1 Patch TD Q3DAYS Baclofen 10 Mg Tablet 10 Mg PO PRN TID PRN Reported Alprazolam 0.5 Mg Tablet 1 Tab PO PRN DAILY PRN Warfarin Sodium 5 Mg Tablet 5 Mg PO DAILY LAST DOSE GIVEN: DATE: TODAY TIME: 4 PM NEXT DOSE DUE: DATE: TOMORROW TIME: 4 PM Gabapentin 300 Mg Capsule 1 Cap PO QID for neuropathy LAST DOSE GIVEN: DATE: TODAY TIME: WITH DINNER NEXT DOSE DUE: DATE: TODAY TIME: AT BEDTIME Carafate (Sucralfate) 1 Gm Tablet 1 Tab PO QID LAST DOSE GIVEN: DATE: TODAY TIME: BEFORE DINNER NEXT DOSE DUE: DATE: TOMORROW TIME: BEFORE BREAKFAST Flomax (Tamsulosin Hcl) 0.4 Mg Cap.er.24h 0.4 Mg PO BID for urinary symptoms LAST DOSE GIVEN: DATE: TIME: AM NEXT DOSE DUE: DATE: TODAY TIME: PM Nitromist (Nitroglycerin) 4.1 Gm [place] 4.1 Gm TL PRN Q5MIN PRN LAST DOSE GIVEN: DATE: TIME: NEXT DOSE DUE: DATE: December TIME: IF AND WHEN NEEDED Imdur (Isosorbide Mononitrate) 120 Mg Tab.er.24h 120 Mg PO DAILY LAST DOSE GIVEN: DATE: TODAY TIME: AM NEXT DOSE DUE: DATE: TOMORROW TIME: AM Metoprolol Succinate ( Xl ) (Metoprolol Succinate) 25 Mg Tab.er.24h 100 Mg PO DAILY LAST DOSE GIVEN: DATE: TIME: AM NEXT DOSE DUE: DATE: TOM TIME: AM Vitals/I & O Vital Sign - Last 24 Hours 03/19/17 03/19/17 03/19/17 03/19/17 09:45 18:54 19:09 20:00 Temp 99.3 98.6 Pulse 69 65 70 Resp 18 16 B/P (MAP) 151/62 143/65 (91) 118/65 (82) Pulse Ox 95 95 O2 Delivery Room Air Room Air Nasal Cannula O2 Flow Rate 2.0 03/19/17 03/20/17 03/20/17 21:23 05:23 07:58 Temp 98.4 Pulse 70 68 Resp 18 B/P (MAP) 118/65 133/62 (85) Pulse Ox 95 O2 Delivery Nasal Cannula Room Air O2 Flow Rate 2.0 Intake and Output 03/19/17 03/19/17 03/20/17 15:00 23:00 07:00 Intake Total 720 ml 1380 ml 200 ml Output Total 700 ml 675 ml Balance 20 ml 1380 ml -475 ml ELI TOLEDO Jr, MD Mar 20, 2017 09:05
[2017-03-20 09:47] LABS: ALBUMIN/GLOBULIN RATIO 0.8 (1.0-1.7); CALCIUM 8.9 mg/dL (8.5-10.1); CREATININE 1.8 mg/dL (0.7-1.3); GFR 37.9; MAGNESIUM 1.8 mg/dL (1.8-2.4); POTASSIUM 4.5 mmol/L (3.5-5.1); TOTAL BILIRUBIN 0.6 mg/dL (0.2-1.0); TOTAL PROTEIN 6.9 g/dL (6.4-8.2)
[2017-03-20] MEDS ORDERED: PANT40TA5 PO (10:14)
[2017-03-20] MEDS ORDERED: CRESTOR40 MG PO (10:14)
[2017-03-20] MEDS ORDERED: AMLO5TAB2 PO (10:14)
== END 2017-03-20 11:00 | disposition home or self-care (01) | DRG 313 ==
LOC: LND 09:30
PROVIDERS: ADMIT Family Medicine; ATTEND Family Medicine
DX: R07.89 Other chest pain (principal); N17.9 Acute kidney failure, unspecified; E11.22 Type 2 diabetes mellitus with diabetic chronic kidney disease; E78.00 Pure hypercholesterolemia, unspecified; E78.5 Hyperlipidemia, unspecified; F41.9 Anxiety disorder, unspecified; G89.4 Chronic pain syndrome; E66.01 Morbid (severe) obesity due to excess calories; I12.9 Hypertensive chronic kidney disease with stage 1 through stage 4 chronic kidney disease, or unspecified chronic kidney disease; I25.10 Atherosclerotic heart disease of native coronary artery without angina pectoris; G47.33 Obstructive sleep apnea (adult) (pediatric); E11.43 Type 2 diabetes mellitus with diabetic autonomic (poly)neuropathy; K31.84 Gastroparesis; K21.9 Gastro-esophageal reflux disease without esophagitis; N18.9 Chronic kidney disease, unspecified; Z79.01 Long term (current) use of anticoagulants; Z82.49 Family history of ischemic heart disease and other diseases of the circulatory system; Z83.3 Family history of diabetes mellitus; Z86.711 Personal history of pulmonary embolism; Z98.61 Coronary angioplasty status; I25.2 Old myocardial infarction; Z88.8 Allergy status to other drugs, medicaments and biological substances; Z90.49 Acquired absence of other specified parts of digestive tract; Z68.39 Body mass index [BMI] 39.0-39.9, adult; E11.65 Type 2 diabetes mellitus with hyperglycemia
CPT/HCPCS: 36415; 80048; 80053; 82947; 83735; 84484; 85027; 93005; 97110; 97116; 97535

== ENCOUNTER → 2017-05-20 | Outpatient (CLI) | payer MEDICARE ==
[~2017-05-20] MED LIST changes: +AMLO5TAB2 PO; +BACL10TA PO; +FENT1PAT15 TD; +HYDR-2868 PO; +INSU100I17 SQ; +INSU100I27 SQ; +METO-239 PO; -METO25TA9 PO; +PANT40TA5 PO; +ZOLP5TAB PO
[2017-05-20 11:03] LABS: ALBUMIN 3.6 g/dL (3.4-5.0); CALCIUM 9.5 mg/dL (8.5-10.1); CREATININE 1.1 mg/dL (0.7-1.3); PHOSPHORUS 4.1 mg/dL (2.6-4.7); POTASSIUM 3.6 mmol/L (3.5-5.1)
== END | disposition home or self-care (01) ==
LOC: LAB 10:33
PROVIDERS: ATTEND Internal Medicine Nephrology
DX: I13.0 Hypertensive heart and chronic kidney disease with heart failure and stage 1 through stage 4 chronic kidney disease, or unspecified chronic kidney disease (principal); I50.9 Heart failure, unspecified; N18.3 Chronic kidney disease, stage 3 (moderate); E11.22 Type 2 diabetes mellitus with diabetic chronic kidney disease; Z79.899 Other long term (current) drug therapy
CPT/HCPCS: 36415; 80069

== ENCOUNTER → 2017-07-31 | Outpatient (CLI) | payer MEDICARE ==
[2017-07-31 11:52] LABS: ALBUMIN 3.2 g/dL (3.4-5.0); ALBUMIN/GLOBULIN RATIO 0.7 (1.0-1.7); CALCIUM 9.3 mg/dL (8.5-10.1); CREATININE 1.3 mg/dL (0.7-1.3); GFR 55.2; POTASSIUM 4.4 mmol/L (3.5-5.1); TOTAL BILIRUBIN 0.7 mg/dL (0.2-1.0); TOTAL PROTEIN 7.5 g/dL (6.4-8.2)
== END | disposition home or self-care (01) ==
LOC: LAB 10:16
PROVIDERS: ATTEND Nurse Practitioner
DX: E78.5 Hyperlipidemia, unspecified (principal); R79.89 Other specified abnormal findings of blood chemistry
CPT/HCPCS: 36415; 80053; 80061; 83036

== ENCOUNTER → 2017-09-09 | Outpatient (CLI) | payer MEDICARE, OTHER ==
[2017-09-09 09:24] LABS: BASO % 0 % (0-3); EOS # 0.1 x10^3/uL (0.0-0.7); EOS % 2 % (0-3); HEMATOCRIT 42.8 % (39.0-53.0); HEMOGLOBIN 14.4 g/dL (13.0-17.5); LYMPH # 3.4 x10^3/uL (1.0-4.8); LYMPH % 48 % (24-48); MEAN CORPUSCULAR HEMOGLOBIN 32 pg (25-35); MEAN CORPUSCULAR HGB CONC 34 g/dL (31-37); MEAN CORPUSCULAR VOLUME 96 fL (79-100); MONO # 0.6 x10^3/uL (0.0-1.1); MONO % 9 % (0-9); NEUT # 2.8 x10^3uL (1.8-7.7); NEUT % 41 % (31-73); PLATELET COUNT 171 x10^3/uL (140-400); RED BLOOD COUNT 4.48 x10^6/uL (4.30-5.70)
[2017-09-09 09:28] LABS: ALBUMIN 3.2 g/dL (3.4-5.0); CALCIUM 8.6 mg/dL (8.5-10.1); CREATININE 1.2 mg/dL (0.7-1.3); GFR 60.6; MAGNESIUM 1.6 mg/dL (1.8-2.4); PHOSPHORUS 3.8 mg/dL (2.6-4.7); POTASSIUM 3.8 mmol/L (3.5-5.1)
[2017-09-09 22:11] LABS: CALCIUM PTH 8.9 mg/dL (8.6-10.2); CREATININE PTH 1.12 mg/dL (0.76-1.27); PTH INTACT 58 pg/mL (15-65)
== END | disposition home or self-care (01) ==
LOC: LAB 08:37
PROVIDERS: ATTEND Nurse Practitioner Family
DX: I13.0 Hypertensive heart and chronic kidney disease with heart failure and stage 1 through stage 4 chronic kidney disease, or unspecified chronic kidney disease (principal); I50.9 Heart failure, unspecified; E11.22 Type 2 diabetes mellitus with diabetic chronic kidney disease; N18.3 Chronic kidney disease, stage 3 (moderate); E21.3 Hyperparathyroidism, unspecified; Z68.37 Body mass index [BMI] 37.0-37.9, adult
CPT/HCPCS: 36415; 80069; 82306; 83735; 83970; 85025

== ENCOUNTER → 2018-02-28 | Outpatient (CLI) | payer MEDICARE, OTHER ==
[~2018-02-28] MED LIST changes: -NITR4.1S TL; +NITR4.1S2 TL; +WARF-31 PO; +WARF4TAB64 PO; -WARF4TAB7 PO; -WARF5TAB7 PO
[2018-02-28 10:21] LABS: BASO % 0 % (0-3); EOS # 0.1 x10^3/uL (0.0-0.7); EOS % 2 % (0-3); HEMATOCRIT 41.6 % (39.0-53.0); HEMOGLOBIN 13.9 g/dL (13.0-17.5); LYMPH # 3.2 x10^3/uL (1.0-4.8); LYMPH % 45 % (24-48); MEAN CORPUSCULAR HEMOGLOBIN 32 pg (25-35); MEAN CORPUSCULAR HGB CONC 33 g/dL (31-37); MEAN CORPUSCULAR VOLUME 95 fL (79-100); MONO # 0.6 x10^3/uL (0.0-1.1); MONO % 9 % (0-9); NEUT # 3.1 x10^3uL (1.8-7.7); NEUT % 44 % (31-73); PLATELET COUNT 183 x10^3/uL (140-400); RED BLOOD COUNT 4.38 x10^6/uL (4.30-5.70); WHITE BLOOD COUNT 7.1 x10^3/uL (4.0-11.0)
[2018-02-28 10:27] LABS: CALCIUM 8.5 mg/dL (8.5-10.1); CREATININE 1.2 mg/dL (0.7-1.3); GFR 60.4; PHOSPHORUS 3.6 mg/dL (2.6-4.7); POTASSIUM 3.6 mmol/L (3.5-5.1)
== END | disposition home or self-care (01) ==
LOC: LAB 09:13
PROVIDERS: ATTEND Internal Medicine Nephrology
DX: I13.0 Hypertensive heart and chronic kidney disease with heart failure and stage 1 through stage 4 chronic kidney disease, or unspecified chronic kidney disease (principal); E11.22 Type 2 diabetes mellitus with diabetic chronic kidney disease; I50.9 Heart failure, unspecified; N18.3 Chronic kidney disease, stage 3 (moderate); E78.00 Pure hypercholesterolemia, unspecified; E03.9 Hypothyroidism, unspecified; Z68.39 Body mass index [BMI] 39.0-39.9, adult
CPT/HCPCS: 36415; 80069; 85025

== ENCOUNTER → 2018-11-11 | Outpatient (CLI) | payer MEDICARE, OTHER ==
[~2018-11-11] MED LIST changes: +AMLO5TAB10 PO; -AMLO5TAB2 PO; -HYDR-2762 PO; +HYDR-2765 PO
[2018-11-11 14:12] LABS: BASO % 1 % (0-3); EOS # 0.1 x10^3/uL (0.0-0.7); EOS % 1 % (0-3); HEMATOCRIT 45.3 % (39.0-53.0); HEMOGLOBIN 14.8 g/dL (13.0-17.5); LYMPH # 2.8 x10^3/uL (1.0-4.8); LYMPH % 37 % (24-48); MEAN CORPUSCULAR HEMOGLOBIN 31 pg (25-35); MEAN CORPUSCULAR HGB CONC 33 g/dL (31-37); MEAN CORPUSCULAR VOLUME 95 fL (79-100); MONO # 0.6 x10^3/uL (0.0-1.1); MONO % 8 % (0-9); NEUT # 4.1 x10^3uL (1.8-7.7); NEUT % 53 % (31-73); PLATELET COUNT 180 x10^3/uL (140-400); RED BLOOD COUNT 4.74 x10^6/uL (4.30-5.70); RED CELL DISTRIBUTION WIDTH 14.6 % (11.5-14.5); WHITE BLOOD COUNT 7.7 x10^3/uL (4.0-11.0)
[2018-11-11 14:19] LABS: ALBUMIN 3.5 g/dL (3.4-5.0); CALCIUM 9.2 mg/dL (8.5-10.1); CREATININE 1.3 mg/dL (0.7-1.3); GFR 54.9; PHOSPHORUS 3.4 mg/dL (2.6-4.7); POTASSIUM 4.1 mmol/L (3.5-5.1)
[2018-11-12 03:08] LABS: CALCIUM PTH 9.3 mg/dL (8.6-10.2); CREATININE PTH 1.07 mg/dL (0.76-1.27); PTH INTACT 69 pg/mL (15-65); UR CREATININE RD 248.9 mg/dL (Not Estab.); UR PROTEIN RD 31.1 mg/dL (Not Estab.)
== END | disposition home or self-care (01) ==
LOC: LAB 13:41
PROVIDERS: ATTEND Nurse Practitioner Family
DX: I12.9 Hypertensive chronic kidney disease with stage 1 through stage 4 chronic kidney disease, or unspecified chronic kidney disease (principal); E11.22 Type 2 diabetes mellitus with diabetic chronic kidney disease; N18.2 Chronic kidney disease, stage 2 (mild); E11.21 Type 2 diabetes mellitus with diabetic nephropathy; Z68.39 Body mass index [BMI] 39.0-39.9, adult
CPT/HCPCS: 36415; 80069; 82570; 83970; 84156; 85025

== ENCOUNTER → 2019-03-20 | Outpatient (CLI) | payer MEDICARE, OTHER ==
[2019-03-20 11:52] LABS: ALBUMIN 3.4 g/dL (3.4-5.0); ALBUMIN/GLOBULIN RATIO 0.8 (1.0-1.7); CALCIUM 9.3 mg/dL (8.5-10.1); TOTAL PROTEIN 7.6 g/dL (6.4-8.2)
[2019-03-20 11:53] LABS: CREATININE 1.3 mg/dL (0.7-1.3); GFR 54.9; POTASSIUM 3.6 mmol/L (3.5-5.1); TOTAL BILIRUBIN 0.7 mg/dL (0.2-1.0)
== END | disposition home or self-care (01) ==
LOC: LAB 09:50
PROVIDERS: ATTEND Nurse Practitioner
DX: E78.5 Hyperlipidemia, unspecified (principal)
CPT/HCPCS: 36415; 80053; 80061

== ENCOUNTER → 2019-11-06 | Outpatient (CLI) | payer MEDICARE, OTHER ==
[~2019-11-06] MED LIST changes: -EZET10TA18 PO; +EZET10TA20 PO
[2019-11-06 11:44] LABS: ALBUMIN 3.2 g/dL (3.4-5.0)
[2019-11-06 11:45] LABS: CALCIUM 8.6 mg/dL (8.5-10.1); CREATININE 1.1 mg/dL (0.7-1.3); GFR 66.4; POTASSIUM 3.7 mmol/L (3.5-5.1)
[2019-11-06 12:17] LABS: BASO % 1 % (0-3); EOS # 0.1 x10^3/uL (0.0-0.7); EOS % 2 % (0-3); HEMATOCRIT 41.7 % (39.0-53.0); HEMOGLOBIN 13.8 g/dL (13.0-17.5); LYMPH # 2.6 x10^3/uL (1.0-4.8); LYMPH % 48 % (24-48); MEAN CORPUSCULAR HEMOGLOBIN 32 pg (25-35); MEAN CORPUSCULAR HGB CONC 33 g/dL (31-37); MEAN CORPUSCULAR VOLUME 98 fL (79-100); MONO # 0.5 x10^3/uL (0.0-1.1); MONO % 8 % (0-9); NEUT # 2.3 x10^3uL (1.8-7.7); NEUT % 42 % (31-73); PLATELET COUNT 161 x10^3/uL (140-400); RED BLOOD COUNT 4.27 x10^6/uL (4.30-5.70); RED CELL DISTRIBUTION WIDTH 14.5 % (11.5-14.5); WHITE BLOOD COUNT 5.5 x10^3/uL (4.0-11.0)
[2019-11-06 15:08] LABS: CREATININE,RANDOM URINE 225.9 mg/dL (Not Establ.)
[2019-11-06 19:07] LABS: CREATININE PTH 1.21 mg/dL (0.76-1.27); PTH INTACT 74 pg/mL (15-65)
== END ==
LOC: LAB 10:15
PROVIDERS: ATTEND Nurse Practitioner Family
DX: E11.21 Type 2 diabetes mellitus with diabetic nephropathy (principal); E11.22 Type 2 diabetes mellitus with diabetic chronic kidney disease; I12.9 Hypertensive chronic kidney disease with stage 1 through stage 4 chronic kidney disease, or unspecified chronic kidney disease; N18.3 Chronic kidney disease, stage 3 (moderate); Z68.39 Body mass index [BMI] 39.0-39.9, adult
CPT/HCPCS: 36415; 80069; 82570; 83970; 84156; 85025

== ENCOUNTER → 2020-03-07 | Outpatient (CLI) | payer MEDICARE, OTHER ==
[2020-03-07 12:53] LABS: ALBUMIN 3.2 g/dL (3.4-5.0); CALCIUM 8.8 mg/dL (8.5-10.1); CREATININE 1.3 mg/dL (0.7-1.3); GFR 54.7; PHOSPHORUS 3.5 mg/dL (2.6-4.7); POTASSIUM 3.5 mmol/L (3.5-5.1)
[2020-03-07 13:01] LABS: BASO # 0.1 x10^3/uL (0.0-0.2); BASO % 1 % (0-3); EOS # 0.1 x10^3/uL (0.0-0.7); EOS % 2 % (0-3); HEMATOCRIT 41.7 % (39.0-53.0); LYMPH # 3.6 x10^3/uL (1.0-4.8); LYMPH % 47 % (24-48); MEAN CORPUSCULAR HEMOGLOBIN 33 pg (25-35); MEAN CORPUSCULAR HGB CONC 34 g/dL (31-37); MEAN CORPUSCULAR VOLUME 98 fL (79-100); MONO # 0.7 x10^3/uL (0.0-1.1); MONO % 9 % (0-9); NEUT # 3.2 x10^3uL (1.8-7.7); NEUT % 42 % (31-73); PLATELET COUNT 174 x10^3/uL (140-400); RED BLOOD COUNT 4.25 x10^6/uL (4.30-5.70); RED CELL DISTRIBUTION WIDTH 14.8 % (11.5-14.5); WHITE BLOOD COUNT 7.6 x10^3/uL (4.0-11.0)
[2020-03-07 13:30] LABS: OVALOCYTES FEW; PLATELET CLUMP PRESENT; PLT ESTIMATE ADEQUATE (ADEQUATE)
[2020-03-07 14:18] LABS: CREATININE,RANDOM URINE 299.6 mg/dL (Not Establ.)
[2020-03-07 20:07] LABS: CALCIUM PTH 8.9 mg/dL (8.6-10.2); CREATININE PTH 1.02 mg/dL (0.76-1.27); PTH INTACT 68 pg/mL (15-65)
== END ==
LOC: LAB 11:40
PROVIDERS: ATTEND Internal Medicine Nephrology
DX: I12.9 Hypertensive chronic kidney disease with stage 1 through stage 4 chronic kidney disease, or unspecified chronic kidney disease (principal); E21.3 Hyperparathyroidism, unspecified; E11.21 Type 2 diabetes mellitus with diabetic nephropathy; E11.22 Type 2 diabetes mellitus with diabetic chronic kidney disease; N18.9 Chronic kidney disease, unspecified; Z79.4 Long term (current) use of insulin
CPT/HCPCS: 36415; 80069; 82570; 83970; 84156; 85025

== ENCOUNTER → 2020-09-05 | Outpatient (CLI) | payer MEDICARE, OTHER ==
[~2020-09-05] MED LIST changes: +AMLO-186 PO; -AMLO5TAB10 PO; -ASPI-612 PO; +ASPI-889 PO; -LISI-338 PO; +LISI-517 PO; -PANT40TA5 PO; +PANT40TA6 PO
[2020-09-05 11:28] LABS: BASO # 0.1 x10^3/uL (0.0-0.2); BASO % 1 % (0-3); EOS # 0.1 x10^3/uL (0.0-0.7); EOS % 1 % (0-3); HEMATOCRIT 41.6 % (39.0-53.0); HEMOGLOBIN 13.9 g/dL (13.0-17.5); LYMPH # 3.1 x10^3/uL (1.0-4.8); LYMPH % 46 % (24-48); MEAN CORPUSCULAR HEMOGLOBIN 32 pg (25-35); MEAN CORPUSCULAR HGB CONC 33 g/dL (31-37); MEAN CORPUSCULAR VOLUME 96 fL (79-100); MONO # 0.5 x10^3/uL (0.0-1.1); MONO % 7 % (0-9); NEUT # 3.1 x10^3uL (1.8-7.7); NEUT % 46 % (31-73); PLATELET COUNT 152 x10^3/uL (140-400); RED BLOOD COUNT 4.31 x10^6/uL (4.30-5.70); WHITE BLOOD COUNT 6.7 x10^3/uL (4.0-11.0)
[2020-09-05 11:45] LABS: ALBUMIN 3.3 g/dL (3.4-5.0); CALCIUM 8.9 mg/dL (8.5-10.1); CREATININE 1.1 mg/dL (0.7-1.3); GFR 66.4; PHOSPHORUS 3.4 mg/dL (2.6-4.7); POTASSIUM 3.6 mmol/L (3.5-5.1)
[2020-09-05 22:09] LABS: CALCIUM PTH 9.2 mg/dL (8.6-10.2); CREATININE PTH 1.06 mg/dL (0.76-1.27); PTH INTACT 63 pg/mL (15-65)
== END ==
LOC: LAB 10:37
PROVIDERS: ATTEND Internal Medicine Nephrology
DX: I12.9 Hypertensive chronic kidney disease with stage 1 through stage 4 chronic kidney disease, or unspecified chronic kidney disease (principal); E11.22 Type 2 diabetes mellitus with diabetic chronic kidney disease; N18.30 Chronic kidney disease, stage 3 unspecified; E11.21 Type 2 diabetes mellitus with diabetic nephropathy; Z68.41 Body mass index [BMI] 40.0-44.9, adult
CPT/HCPCS: 36415; 80069; 83970; 85025

== ENCOUNTER 2021-08-05 16:23 | Emergency (ER) | payer MEDICARE, OTHER ==
[~2021-08-05] VITALS: Ht 177.8 cm; Wt 127.1 kg
[~2021-08-05 16:23] MED LIST changes: -LISI-517 PO; +LISI5TAB15 PO
--- NOTE | 2021-08-05 16:32 | PHYS DOC ---
Past History Past Medical History: Depression, Diabetes, Hypertension, Other (BONI ASHLEY DO) Past Surgical History: Cholecystectomy, Other (BONI ASHLEY DO) Smoking: Non-smoker Alcohol Use: Occasionally Drug Use: None (BONI ASHLEY DO) Adult General Chief Complaint Chief Complaint: COUGH HPI HPI Patient is a 70-year-old male presenting via POV for shortness of breath. Reports this is been ongoing for the last 3 or 4 days. Nothing known makes better, physical exertion makes worse. Reports he has had difficulty breathing with pressure that is substernal and often times radiates to back. Timing of symptoms has been constant and worsening since onset prompting him to come in today. States he is otherwise been at baseline health, has been taking all medications as scheduled without any sick contacts or recent travel. Admits he is fully vaccinated against COVID-19. Discloses that he has history of CAD with stents in addition to pulmonary embolisms for which he is on warfarin with goal 2.0-3.0. Admits ongoing upper respiratory symptoms with productive cough of yellow and green sputum. (BONI ASHLEY DO) Review of Systems Review of Systems Fourteen body systems of review of systems have been reviewed. See HPI for pertinent positives and negative responses, other [place] all other systems are negative, non-pertinent or non-contributory (BONI ASHLEY DO) Allergies Allergies Allergies Coded Allergies Type Severity Reaction Last Updated Verified niacin Allergy Intermediate 02/24/16 Yes (BONI ASHLEY DO) Physical Exam Physical Exam Constitutional: Well developed, well nourished, no acute distress, non-toxic appearance. HENT: Normocephalic, atraumatic, bilateral external ears normal, oropharynx moist, no oral exudates, nose normal. Eyes: PERRLA, EOMI, conjunctiva normal, no discharge. Neck: Normal range of motion, no tenderness, supple, no stridor. Cardiovascular: Heart rate regular, sinus rhythm, no murmurs rubs or gallops Lungs & Thorax: Bilateral breath sounds clear to auscultation Abdomen: Bowel sounds normal, soft, no tenderness, no masses, no pulsatile masses. Nonsurgical abdomen, no peritoneal signs Skin: Warm, dry, no erythema, no rash. Back: No tenderness, no CVA tenderness. Extremities: No tenderness, no cyanosis, no clubbing, ROM intact, no edema. Neurologic: Alert and oriented X 3, grossly normal motor & sensory function, no focal deficits noted. Psychologic: Affect normal, judgement normal, mood normal. (BONI ASHLEY DO) Current Patient Data Vital Signs Vital Signs Date Time Temp Pulse Resp B/P (MAP) Pulse Ox O2 Delivery O2 Flow Rate FiO2 08/05/21 16:55 98.7 110 30 145/114 (124) 94 Nasal Cannula 2.0 Vital Signs Date Time Temp Pulse Resp B/P (MAP) Pulse Ox O2 Delivery O2 Flow Rate FiO2 08/05/21 17:04 93 Nasal Cannula 4.0 08/05/21 16:56 110 145/114 08/05/21 16:55 98.7 30 Lab Results Laboratory Tests Test 08/05/21 16:40 08/05/21 16:44 08/05/21 16:46 White Blood Count 8.9 x10^3/uL Red Blood Count 4.18 x10^6/uL Hemoglobin 13.3 g/dL Hematocrit 41.2 % Mean Corpuscular Volume 99 fL Mean Corpuscular Hemoglobin 32 pg Mean Corpuscular Hemoglobin Concent 32 g/dL Red Cell Distribution Width 14.8 % Platelet Count 138 x10^3/uL Neutrophils (%) (Auto) 64 % Lymphocytes (%) (Auto) 26 % Monocytes (%) (Auto) 10 % Eosinophils (%) (Auto) 0 % Basophils (%) (Auto) 1 % Neutrophils # (Auto) 5.6 x10^3uL Lymphocytes # (Auto) 2.3 x10^3/uL Monocytes # (Auto) 0.9 x10^3/uL Eosinophils # (Auto) 0.0 x10^3/uL Basophils # (Auto) 0.0 x10^3/uL Bedside Venous pH 7.32 Bedside Venous pCO2 65 mmHg Bedside Venous pO2 26 mmHg Venous Blood HCO3 34 mmol/L POC Venous O2 Saturation (Rachel) 40 % Bedside FiO2 28 Influenza Type A (Rapid) Negative Influenza Type B (Rapid) Negative Current Medications Medications (Trade) Dose Ordered Sig/Felix Route PRN Reason Start Time Stop Time Status Last Admin Dose Admin Aspirin (Aspirin Chewable) 324 mg 1X ONCE PO 08/05/21 16:45 08/05/21 16:55 DC 08/05/21 16:45 Nitroglycerin (Nitrostat) 0.4 mg PRN Q5MIN PRN SL CP RATING > 10 08/05/21 16:45 08/06/21 16:44 08/05/21 16:56 Albuterol/ Ipratropium (Duoneb) 3 ml 1X ONCE NEB 08/05/21 17:00 08/05/21 17:01 DC 08/05/21 17:03 Iohexol (Omnipaque 350 Mg/ml) 100 ml 1X ONCE IV 08/05/21 17:15 08/05/21 17:16 DC Info (Do NOT chart on this entry -- for MONITORING) 1 each PRN DAILY PRN MC SEE COMMENTS 08/05/21 17:15 08/07/21 17:14 (BONI ASHLEY DO) EKG EKG EKG ordered and interpreted by myself at 1645 hrs. as sinus rhythm at 90 bpm, unremarkable intervals, no axis deviation, lateral ST depression noted in leads V4 through V6, no STEMI Prior EKG from 03/19/2017 obtained, grossly the same except no ST wave depressions noted at that time Repeat EKG ordered and interpreted by myself at 1735 hrs. as sinus rhythm at 87 bpm, unremarkable intervals, left axis deviation, persistent but questionably improved ST wave depression noted in leads V4 through V6, no STEMI (BONI ASHLEY DO) Radiology/Procedures Radiology/Procedures [] (BONI ASHLEY DO) Heart Score C/O Chest Pain: Yes HEART Score for Chest Pain: HEART Score for Chest Pain Response (Comments) Value History Moderately Suspicious [address] Depression 2 Age > 65 2 Risk Factors >3 Risk Factors or Hx CAD 2 Total 7 Risk Factors: Risk Factors: DM, Current or recent (<one month) smoker, HTN, HLP, family history of CAD, obesity. Risk Scores: Risk Factors: DM, Current or recent (<one month) smoker, HTN, HLP, family history of CAD, obesity. (BONI ASHLEY DO) Course & Med Decision Making Course & Med Decision Making Airway patent, breathing labored, IV access and vitals obtained concerning for hypoxia on room air 72%, tachypnea, and tachycardia Patient repositioned in supplemental oxygen via nasal cannula immediately applied with improvement in respiratory status HPI physical exam and comprehensive ER work-up started. 324 mg aspirin and a total of x3 nitrates administered with minor improvement in patient's lateral ST wave depression. At this time in care my shift was ending Comprehensive signout given to oncoming physician who will assume all care of patient. Please defer to his documentation regarding future ER care of patient (BONI ASHLEY DO) Course & Med Decision Making Patient care handed off to me at checkout pending imaging. Patient awake, alert and oriented and mild respiratory distress requiring 3 L of nasal cannula. Patient work-up notable for non-ST elevation MO, type I versus type II, bilateral pneumonia with Covid swab pending, probable COPD exacerbation. Laboratory analysis notable for elevated troponin and BNP, elevated lactate, INR 1.7 which is subtherapeutic for him as he is supposed to maintain 2-[address] notable for pneumonia plus or minus some pulmonary edema and atelectasis. Started on heparin drip given patient's history of CAD and 3 stents on warfarin and new EKG changes in lateral leads, blood cultures and antibiotics, and COPD exacerbation treatment and home dose of Lasix. Discussed all findings with family and recommended admission. Family wanted to be admitted to [facility], but [facility] had no bed availability. Called [place] [facility], given patient information in hopes of finding placement. [facility] found placement at [facility]. Patient verbalized understanding and accepted transfer admission [facility]. (EVETTE TORRES MD) Dragon Disclaimer Dragon Disclaimer This electronic medical record was generated, in whole or in part, using a voice recognition dictation system. (BONI ASHLEY DO) Departure Departure: Impression: Primary Impression: NSTEMI (non-ST elevated myocardial infarction) Additional Impressions: Acute respiratory failure Pneumonia Disposition: [facility] ([facility]) Condition: STABLE Referrals: RUBY BROWN MD (PCP) Problem Qualifiers BONI ASHLEY DO Aug 05, 2021 16:32 EVETTE TORRES MD Aug 05, 2021 19:25
[2021-08-05] MEDS ORDERED: ASPIRIN CHEWABLE 81 MG TABLET. PO ONE (16:45)
[2021-08-05] MEDS ORDERED: NITROGLYCERIN SUBLINGUAL 0.4 MG BOTTLE OF 25. SL PRN (16:45)
--- NOTE | 2021-08-05 16:54 | EKG ---
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
[2021-08-05] MEDS ORDERED: IPRATRPIUM/ALBUTEROL 0.5/2.5MG 3 ML NEBU. NEB ONE (17:00)
[2021-08-05] MEDS ORDERED: IOHEXOL 350 MG/ML 100 ML VIAL. IV ONE (17:15)
[2021-08-05] MEDS ORDERED: CONTRAST GIVEN. MC PRN (17:15)
[2021-08-05 17:31] LABS: BASO % 1 % (0-3); EOS % 0 % (0-3); HEMATOCRIT 41.2 % (39.0-53.0); HEMOGLOBIN 13.3 g/dL (13.0-17.5); LYMPH # 2.3 x10^3/uL (1.0-4.8); LYMPH % 26 % (24-48); MEAN CORPUSCULAR HEMOGLOBIN 32 pg (25-35); MEAN CORPUSCULAR HGB CONC 32 g/dL (31-37); MEAN CORPUSCULAR VOLUME 99 fL (79-100); MONO # 0.9 x10^3/uL (0.0-1.1); MONO % 10 % (0-9); NEUT # 5.6 x10^3uL (1.8-7.7); NEUT % 64 % (31-73); PLATELET COUNT 138 x10^3/uL (140-400); RED BLOOD COUNT 4.18 x10^6/uL (4.30-5.70); RED CELL DISTRIBUTION WIDTH 14.8 % (11.5-14.5); WHITE BLOOD COUNT 8.9 x10^3/uL (4.0-11.0)
--- NOTE | 2021-08-05 17:39 | EKG ---
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
[2021-08-05 17:41] LABS: INFLUENZA A PATIENT NEGATIVE (NEGATIVE); INFLUENZA B PATIENT NEGATIVE (NEGATIVE)
[2021-08-05 17:58] LABS: CALCIUM 8.6 mg/dL (8.5-10.1); CREATININE 1.3 mg/dL (0.7-1.3); GFR 54.6; POTASSIUM 4.4 mmol/L (3.5-5.1)
--- NOTE | 2021-08-05 19:00 | RAD ---
Examination: CT angiography chest with IV contrast HISTORY: History of shortness of breath COMPARISON: 03/21/2015 Technique: Axial CT angiographic images of chest were performed with IV contrast. Coronal and sagitta l 3-D MIP reformats are performed Exposure: One or more of the following individualized dose reduction techniques were utilized for thi s examination: 1. Automated exposure control 2. Adjustment of the mA and/or kV according to patient size 3. Use of iterative reconstruction technique FINDINGS: The visualized thyroid gland grossly appears unremarkable. Central airways are patent. Coronary arter y calcifications. Small mediastinal lymph nodes identified with the largest measuring 9 mm in the pretracheal region There is no evidence of filling defect identified in the main pulmonary arterial trunk and right and left main pulmonary arteries and the visualized visualized lobar, segmental pulmonary arteries. There is moderate consolidation changes identified in the right middle lobe and right lower lobe of t he lung with air bronchograms. There are few patchy airspace opacities identified in the right upper lobe of the lung. The liver, spleen, adrenals grossly appears unremarkable. The stomach is mildly distended There is a 1.2 cm nodule or mass identified in the right kidney. Moderate degenerative changes thoracic spine. IMPRESSION: 1. No evidence of pulmonary embolism. 2. Moderate consolidation changes identified in the right middle lobe and right lower lobe of the tuyet ng with air bronchograms likely pneumonia or atelectasis. There are few patchy airspace opacities caleb ntified in the right upper lobe of the lung likely pneumonia . Follow-up to resolution. Neoplasm is n ot completely excluded. 3. 1.2 cm nodule or mass identified in the right kidney. Follow-up nonemergent ultrasound kidneys ca n be considered. 4. Coronary artery calcifications. Electronically signed by: Alex Law MD (08/05/2021 6:58 PM) [id number]
[2021-08-05] MEDS ORDERED: FUROSEMIDE 40 MG/4 ML VIAL IVP ONE (19:15)
[2021-08-05] MEDS ORDERED: HEPARIN for IV BOLUS 10,000 UNIT/10 ML VIAL. IV PRN (19:15)
[2021-08-05] MEDS ORDERED: AZITHROMYCIN 250 MG TABLET. PO ONE (19:15)
[2021-08-05] MEDS ORDERED: HEPARIN for IV BOLUS 10,000 UNIT/10 ML VIAL. IV ONE (19:15)
[2021-08-05] MEDS ORDERED: DEXAMETHASONE 4 MG TABLET PO ONE (19:15)
[2021-08-05] MEDS ORDERED: ALBUTEROL SULFATE 8GM INHALER. INH ONE (19:15)
[2021-08-05] MEDS ORDERED: IV NORMAL SALINE 50ML 50 ML ONE (19:40)
[2021-08-05] MEDS ORDERED: cefTRIAXone SODIUM 1 GM VIAL ONE (19:41)
[2021-08-05] MEDS: HEPARIN 25,000UTS/250ML PREMIX 250 ML IV PRN ×2 (19:49→23:37)
[2021-08-05 22:18] VITALS: BP 155/84
== END 2021-08-05 22:24 | disposition short-term general hospital (02) ==
LOC: ER 16:23
DX: I21.4 Non-ST elevation (NSTEMI) myocardial infarction (principal); J96.00 Acute respiratory failure, unspecified whether with hypoxia or hypercapnia; J18.9 Pneumonia, unspecified organism; E11.9 Type 2 diabetes mellitus without complications; I10 Essential (primary) hypertension; F32.9 Major depressive disorder, single episode, unspecified; Z20.822 Contact with and (suspected) exposure to COVID-19; Z88.1 Allergy status to other antibiotic agents
CPT/HCPCS: 36415; 71275; 80048; 82803; 83605; 83880; 84484; 85025; 85610; 85730; 87040; 87426; 87804; 93005; 94640; 96365; 96375; 99285; C9803; J0696; J1644; J1940; J3010; J8540; Q9967; U0003; 94664